=== PATIENT | male | born 1945 | race Caucasian/White ===

== ENCOUNTER 2018-12-08 11:45 | Inpatient (IN) | payer MEDICAID, OTHER ==
[2018-12-08 11:48] VITALS: BMI 22.8
--- NOTE | 2018-12-08 12:54 | ED PDOC ---
Arrival/HPI - General Chief Complaint: GI Problem Time Seen by Provider: 12/08/18 12:35 Historian: Patient - History of Present Illness Narrative History of Present Illness (Text): 12/08/18 12:35 Cresencio Verdugo is a 73 year old male, with a past medical history of Colon CA s/p partial Colon Resection, pericardial effusion s/p pericardiocentesis, and thyroid and prostate history, who presents to the emergency department complai bronwyn of bloody diarrhea since yesterday. Patient notes associated bilateral flank pain. Patient informs stool and blood are separate. Patient informs increased blood in the stool today which prompted visit to the ED. Patient denies any history of current complaints. Patient denies fever, chills, headache, dizziness, nausea, vomiting, dysuria, hematuria, or any other complaints. Time/Duration: 24 hours Symptom Onset: Sudden Symptom Course: Worsening Activities at Onset: Light Context: Home Past Medical History - Provider Review Nursing Documentation Reviewed: Yes - Infectious Disease Hx of Infectious Diseases: None - Past Medical History Past Medical History: Non-Contributing - Cardiac Other/Comment: cardiac sx to remove fluid from heart 07/23 - Musculoskeletal/Rheumatological Hx Falls: No - Gastrointestinal Other/Comment: stomach CA (sx one year ago) - Genitourinary/Gynecological Other/Comment: colon ca - Psychiatric Hx Depression: No Hx Emotional Abuse: No Hx Physical Abuse: No Hx Substance Use: No - Suicidal Assessment Feels Threatened In Home Enviroment: No Family/Social History - Physician Review Nursing Documentation Reviewed: Yes Family/Social History: Unknown Family HX Smoking Status: Former Smoker Hx Alcohol Use: No Hx Substance Use: No Hx Substance Use Treatment: No Allergies/Home Meds Allergies/Adverse Reactions: Allergies No Known Allergies Allergy (Verified 10/23/15 16:51) Home Medications: Home Meds Medication Instructions Recorded Confirmed Unobtainable 12/08/18 12/08/18 Review of Systems - Physician Review All systems were reviewed & negative as marked: Yes - Review of Systems Constitutional: absent: Fevers, Other Gastrointestinal: Abdominal Pain (bilaterally to flanks), Diarrhea, Hematochezia. absent: Nausea, Vomiting Genitourinary Male: absent: Dysuria, Hematuria Neurological: absent: Headache, Dizziness Physical Exam Vital Signs Reviewed: Yes Vital Signs Temp Pulse Resp BP Pulse Ox 12/08/18 11:59 97.9 F 88 18 103/66 97 Temperature: Afebrile Blood Pressure: Normal Pulse: Regular Respiratory Rate: Normal Appearance: Positive for: Well-Appearing, Non-Toxic, Comfortable Pain Distress: None Mental Status: Positive for: Alert and Oriented X 3 - Systems Exam Head: Present: Atraumatic, Normocephalic Pupils: Present: PERRL Extroacular Muscles: Present: EOMI Conjunctiva: Present: Normal Mouth: Present: Moist Mucous Membranes Neck: Present: Normal Range of Motion Respiratory/Chest: Present: Clear to Auscultation, Good Air Exchange. No: Respiratory Distress, Accessory Muscle Use, Wheezes, Rales, Rhonchi Cardiovascular: Present: Regular Rate and Rhythm, Normal S1, S2. No: Murmurs, Rub, Gallop Abdomen: Present: Tenderness (diffuse abdominal tenderness), Normal Bowel Sounds. No: Distention, Peritoneal Signs, Rebound, Guarding Back: Present: Normal Inspection Upper Extremity: Present: Normal Inspection. No: Cyanosis, Edema Lower Extremity: Present: Normal Inspection. No: Edema Neurological: Present: GCS=15, CN II-XII Intact, Speech Normal Skin: Present: Warm, Dry, Normal Color. No: Rashes Psychiatric: Present: Alert, Oriented x 3, Normal Insight, Normal Concentration Medical Decision Making ED Course and Treatment: 12/08/18 12:35 Impression: Cresencio Verdugo is a 73 year old male, with a past medical history of colon CA s/p partial Colon Resection, pericardial effusion s/p pericardiocentesis, thyroid and prostate history, who presents to the emergency department complaining of bloody diarrhea since yesterday. Plan: -- CT Abdomen/Pelvis -- IV Fluids -- Urinalysis -- Reassess and disposition Prior Visits: Notes and results from previous visits were reviewed. Progress Notes: Patient seen and examined. Hemoccult positive stool with no melena or hematochezia. Hgb 8.7, no need for emergent transfusion. 1L NS bolus given. Case discussed with Dr. Boland who accepts patient for admission to hospitalist service. Would like GI applications developer for consult. Consult placed to Dr. Whitten. - RAD Interpretation Narrative RAD Interpretations (Text): IMPRESSION: 1. Mild dilatation of fluid-filled proximal small bowel loops with severe segmental dilatation of a proximal jejunal loop at the site of suture line. Findings could represent nonspecific enteritis, ileus, or developing/partial SBO. Clinical followup is advised. 2. Constipation and mild gaseous distension of the colon. 3. Simple cysts in the liver and kidneys. 4. Moderate pericardial effusion. Small right and trace left pleural effusions. 5. Moderate enlargement of the prostate gland. Please correlate with PSA levels. Industrial Cafeteria Manager: Radiologist - Scribe Statement The provider has reviewed the documentation as recorded by the Zenaidaibyocasta Wooten All medical record entries made by the Zenaidaibyocasta were at my direction and personally dictated by me. I have reviewed the chart and agree that the record accurately reflects my personal performance of the history, physical exam, medical decision making, and the department course for this patient. I have also personally directed, reviewed, and agree with the discharge instructions and disposition. Disposition/Present on Arrival - Present on Arrival Any Indicators Present on Arrival: No History of DVT/PE: No History of Uncontrolled Diabetes: No Urinary Catheter: No History of Decub. Ulcer: No History Surgical Site Infection Following: None - Disposition Have Diagnosis and Disposition been Completed?: Yes Diagnosis: GI bleed Disposition: HOSPITALIZED Disposition Time: 15:53 Condition: STABLE
[2018-12-08] MEDS ORDERED: Sodium Chloride 0.9% 1,000 ML IV STA (12:59)
[2018-12-08 13:32] LABS: BASO # 0.01 K/mm3 (0.0-2.0); BASO % 0.2 % (0.0-3.0); EOS # 0.2 (0.0-0.7); EOS % 2.5 % (1.5-5.0); HEMOGLOBIN 8.7 g/dL (14.0-18.0); LYMPH # 2.2 (1.2-3.4); LYMPH % 34.3 % (22.0-35.0); MEAN CORPUSCULAR HEMOGLOBIN 25.4 pg (25.0-35.0); MEAN CORPUSCULAR HGB CONC 31.4 g/dl (31.0-37.0); MEAN PLATELET VOLUME 9.2 fl (7.0-11.0); MONO # 0.5 (0.1-0.6); MONO % 7.9 % (1.0-6.0); RBC 3.42 10^6/uL (3.5-6.1); RED CELL DISTRIBUTION WIDTH 15.5 % (11.5-14.5); WHITE BLOOD COUNT 6.3 10^3/uL (4.5-11.0)
[2018-12-08] MEDS ORDERED: Iohexol 350 MG/100 ML VIAL ONE (13:39)
[2018-12-08 13:40] LABS: ALB/GLOB RATIO 1.1 (1.1-1.8); ALBUMIN 2.8 g/dL (3.0-4.8); ALT/SGPT 17 U/L (7-56); AST/SGOT 20 U/L (17-59); BLOOD UREA NITROGEN 32 mg/dL (7-21); GFR NON-AFRICAN AMERICAN > 60
[2018-12-08 13:41] LABS: INR 1.19; PARTIAL THROMBOPLASTIN TIME 36.9 Seconds (26.9-38.3); PROTHROMBIN TIME 13.5 SECONDS (9.4-12.5)
--- NOTE | 2018-12-08 14:31 | CT ---
Date of service: 12/08/2018 PROCEDURE: CT Abdomen and Pelvis with contrast HISTORY: abd pain, hx colon ca s/p resection 3yrs ago COMPARISON: None available. TECHNIQUE: CT scan of the abdomen and pelvis was performed after administration of intravenous contrast. Oral contrast was not administered. Coronal and sagittal reformatted images were obtained. Contrast dose: 100 mL Omnipaque 350 Radiation dose: Total exam DLP = 362.23 mGy-cm. This CT exam was performed using one or more of the following dose reduction techniques: Automated exposure control, adjustment of the mA and/or kV according to patient size, and/or use of iterative reconstruction technique. FINDINGS: LOWER THORAX: There is dependent atelectasis in the lung bases. Small right and trace left pleural effusions there is mild cardiomegaly with moderate pericardial effusion. LIVER: Normal in size with homogeneous enhancement. No ductal dilatation. There is a small simple cyst in the right hepatic lobe and a 1.3 cm simple cyst in the left hepatic lobe. There are few simple cysts in both kidneys, the largest in the left interpolar region measures 5.2 x 4.3 cm. GALLBLADDER AND BILE DUCTS: Well distended. No calcified gallstones, wall thickening or pericholecystic fluid. PANCREAS: Normal in size with homogeneous enhancement. No gross lesion or ductal dilatation. SPLEEN: Normal in size and appearance. ADRENALS: No discrete nodule. KIDNEYS AND URETERS: Normal in size with homogeneous enhancement. No hydronephrosis. No solid mass. VASCULATURE: The aorta is tortuous. No aortic aneurysm. There are aortic atherosclerotic calcifications present. BOWEL: Evaluation of the bowel is limited in the absence of oral contrast. There is dilatation of fluid-filled proximal small bowel loop, with severe segmental dilatation of fluid-filled proximal jejunum at the site of suture line. The mid and distal small bowel loops are normal in caliber. There is large amount of stool in the colon. There is gaseous distension of the colon. There are postsurgical changes of partial sigmoid colon resection. APPENDIX: Normal appendix. PERITONEUM: No free fluid. No free air. LYMPH NODES: No enlarged lymph nodes. BLADDER: Partially distended and grossly normal in appearance. REPRODUCTIVE: There is moderate enlargement of the prostate gland with median lobe hypertrophy indenting on the base of the urinary bladder. BONES: No acute fracture. There is diffuse bone demineralization and multilevel degenerative changes in the spine. OTHER FINDINGS: There are bilateral small fat containing inguinal hernias. IMPRESSION: 1. Mild dilatation of fluid-filled proximal small bowel loops with severe segmental dilatation of a proximal jejunal loop at the site of suture line. Findings could represent nonspecific enteritis, ileus or developing/partial small bowel obstruction. Clinical follow-up is advised. 2. Constipation and mild gaseous distension of the colon. 3. Simple cysts in the liver and kidneys. 4. Moderate pericardial effusion. Small right and trace left pleural effusions. 4. Moderate enlargement of the prostate gland. Please correlate with PSA levels.
[2018-12-08 16:45] LABS: URINE BILIRUBIN NEGATIVE (NEGATIVE); URINE BLOOD NEGATIVE (NEGATIVE); URINE GLUCOSE (UA) NEGATIVE (NEGATIVE); URINE LEUKOCYTE ESTERASE NEGATIVE Leu/uL (NEGATIVE); URINE PROTEIN NEGATIVE mg/dL (<30 mg/dL); URINE UROBILINOGEN 0.2 E.U./dL (<1 E.U./dL)
[2018-12-08 16:46] LABS: URINE APPEARANCE CLEAR (CLEAR); URINE COLOR LIGHT YELLOW (YELLOW)
[2018-12-08] MEDS: Lactated Ringer's 1,000 ML IV SCH (17:47)
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
[2018-12-08 18:34] LABS: HDL CHOLESTEROL 27 mg/dL (29-60); IRON 23 ug/dL (45-180)
[2018-12-08 18:44] LABS: % IRON SATURATION 7 % (20-55); TOTAL IRON BINDING CAPACITY 336 ug/dL (261-462)
[2018-12-08 18:45] LABS: LDL CHOLESTEROL 45 mg/dL (0-129)
[2018-12-08 19:30] LABS: BASO # 0.01 K/mm3 (0.0-2.0); BASO % 0.2 % (0.0-3.0); EOS # 0.1 (0.0-0.7); EOS % 2.4 % (1.5-5.0); HEMOGLOBIN 8.1 g/dL (14.0-18.0); LYMPH # 2.1 (1.2-3.4); LYMPH % 35.8 % (22.0-35.0); MEAN CELL VOLUME 80.8 fl (80.0-105.0); MEAN CORPUSCULAR HEMOGLOBIN 25.5 pg (25.0-35.0); MEAN CORPUSCULAR HGB CONC 31.5 g/dl (31.0-37.0); MEAN PLATELET VOLUME 8.9 fl (7.0-11.0); MONO # 0.3 (0.1-0.6); MONO % 4.7 % (1.0-6.0); RBC 3.18 10^6/uL (3.5-6.1); RED CELL DISTRIBUTION WIDTH 15.5 % (11.5-14.5); WHITE BLOOD COUNT 5.9 10^3/uL (4.5-11.0)
[2018-12-08 21:55] LABS: FOLATE > 20.0 ng/mL
[2018-12-08] MEDS ORDERED: Pneumococcal 23-Valent Vaccine IM ONE (22:35)
[2018-12-09 01:38] LABS: BASO # 0.01 K/mm3 (0.0-2.0); BASO % 0.2 % (0.0-3.0); EOS # 0.2 (0.0-0.7); HEMOGLOBIN 7.8 g/dL (14.0-18.0); LYMPH # 2.2 (1.2-3.4); LYMPH % 43.3 % (22.0-35.0); MEAN CELL VOLUME 81.4 fl (80.0-105.0); MEAN CORPUSCULAR HGB CONC 30.7 g/dl (31.0-37.0); MEAN PLATELET VOLUME 8.4 fl (7.0-11.0); MONO # 0.3 (0.1-0.6); MONO % 5.6 % (1.0-6.0); RBC 3.12 10^6/uL (3.5-6.1); RED CELL DISTRIBUTION WIDTH 15.5 % (11.5-14.5)
[2018-12-09] MEDS: Levothyroxine 50 MCG TAB PO SCH (05:07)
[2018-12-09 06:37] LABS: BASO # 0.02 K/mm3 (0.0-2.0); BASO % 0.4 % (0.0-3.0); EOS # 0.2 (0.0-0.7); EOS % 3.1 % (1.5-5.0); HEMOGLOBIN 8.8 g/dL (14.0-18.0); LYMPH # 2.2 (1.2-3.4); LYMPH % 42.6 % (22.0-35.0); MEAN CELL VOLUME 82.1 fl (80.0-105.0); MEAN CORPUSCULAR HEMOGLOBIN 25.4 pg (25.0-35.0); MEAN CORPUSCULAR HGB CONC 30.9 g/dl (31.0-37.0); MEAN PLATELET VOLUME 9.2 fl (7.0-11.0); MONO # 0.2 (0.1-0.6); MONO % 4.5 % (1.0-6.0); RBC 3.47 10^6/uL (3.5-6.1); RED CELL DISTRIBUTION WIDTH 15.5 % (11.5-14.5); WHITE BLOOD COUNT 5.1 10^3/uL (4.5-11.0)
[2018-12-09 06:45] LABS: ALBUMIN 2.7 g/dL (3.0-4.8); ALT/SGPT 20 U/L (7-56); AST/SGOT 24 U/L (17-59); BLOOD UREA NITROGEN 28 mg/dL (7-21); GFR NON-AFRICAN AMERICAN > 60
[2018-12-09] MEDS ORDERED: Dextrose 50% SYRINGE Inj (50 ml) IVP ONE (08:30)
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
[2018-12-09 13:20] LABS: BASO # 0.02 K/mm3 (0.0-2.0); BASO % 0.4 % (0.0-3.0); EOS # 0.1 (0.0-0.7); EOS % 2.3 % (1.5-5.0); HEMOGLOBIN 9.1 g/dL (14.0-18.0); LYMPH # 1.8 (1.2-3.4); LYMPH % 35.4 % (22.0-35.0); MEAN CORPUSCULAR HEMOGLOBIN 25.9 pg (25.0-35.0); MEAN CORPUSCULAR HGB CONC 31.9 g/dl (31.0-37.0); MEAN PLATELET VOLUME 9.5 fl (7.0-11.0); MONO # 0.2 (0.1-0.6); MONO % 3.9 % (1.0-6.0); RBC 3.52 10^6/uL (3.5-6.1); RED CELL DISTRIBUTION WIDTH 15.4 % (11.5-14.5); WHITE BLOOD COUNT 5.1 10^3/uL (4.5-11.0)
--- NOTE | 2018-12-09 13:39 | CARD ---
APPROVED REPORT Date of service: 12/09/2018 EXAM: Two-dimensional and M-mode echocardiogram with Doppler and color Doppler. INDICATION Pericardial Effusion 2D DIMENSIONS Left Atrium (2D)4.2 (1.6-4.0cm)IVSd0.9 (0.7-1.1cm) LVDd4.5 (3.9-5.9cm)PWd1.2 (0.7-1.1cm) LVDs3.1 (2.5-4.0cm)FS (%) 31.7 % LVEF (%)59.9 (>50%) M-Mode DIMENSIONS Aortic Root3.70 (2.2-3.7cm)Aortic Cusp Exc.1.90 (1.5-2.0cm) Aortic Valve AoV Peak Beyzfhaj279.0cm/Anthony Peak GR.11mmHg Mitral Valve MV E Sikhbgjp86.7cm/sMV A Ggdfggkw724.0cm/sE/A ratio0.6 TDI Lateral E' Peak V7.70cm/sE/Lateral E'8.0E/Medial E'0.0 Pulmonary Valve PV Peak Swvprmdk19.8cm/sPV Peak Grad.3mmHg Tricuspid Valve TR Peak Rmvedyne842rq/sRAP [id number] Peak Gr.30mmHg [id number] LEFT VENTRICLE The left ventricle is normal size. There is normal left ventricular wall thickness. The left ventricular function is normal. The left ventricular ejection fraction is within the normal range. There is normal LV segmental wall motion. Transmitral Doppler flow pattern is Grade I-abnormal relaxation pattern. RIGHT VENTRICLE The right ventricle is normal size. There is normal right ventricular wall thickness. The right ventricular systolic function is normal. ATRIA The left atrium is borderline dilated. The right atrium is borderline dilated. AORTIC VALVE The aortic valve is normal in structure. No aortic regurgitation is present. There is no aortic valvular stenosis. MITRAL VALVE The mitral valve is normal in structure. Mitral regurgitation is trace. TRICUSPID VALVE There is mild tricuspid regurgitation. There is mild pulmonary hypertension. PULMONIC VALVE The pulmonary valve is normal in structure. There is trace pulmonic valvular regurgitation. GREAT VESSELS The aortic root is normal in size. PERICARDIAL EFFUSION There is a moderate-large loculated anterior pericardial effusion. There is no evidence of cardiac tamponade. <Conclusion> There is normal left ventricular wall thickness. The left ventricular function is normal. The left ventricular ejection fraction is within the normal range. There is normal LV segmental wall motion. Transmitral Doppler flow pattern is Grade I-abnormal relaxation pattern. There is mild tricuspid regurgitation. There is mild pulmonary hypertension. There is a moderate-large loculated anterior pericardial effusion. There is no evidence of cardiac tamponade.
[2018-12-09] MEDS: Vancomycin 25 MG/ML PO SCH ×3 (13:40→22:00)
[2018-12-09] MEDS: Lactated Ringer's 1,000 ML IV SCH (13:43)
--- NOTE | 2018-12-09 14:15 | CP.PCM.PN ---
<Beka Dalal - Last Filed: 12/09/18 15:27> Subjective - Date & Time of Evaluation Date of Evaluation: 12/09/18 Time of Evaluation: 08:00 - Subjective Subjective: Beka Dalal PGY-1 Progress Note for Hospitalist Service Patient seen and evaluated at bedside. No acute events reported overnight. Received one unit PRBC transfusion overnight. Tolerated well. Denies chest pain, palpitations, shortness of breath, leg pain, abdominal pain, dizziness, headaches, and blurry vision. Objective - Vital Signs/Intake and Output Vital Signs (last 24 hours): Temp Pulse Resp BP Pulse Ox 97.4 F L 81 20 118/66 94 L 12/09/18 06:00 12/09/18 06:00 12/09/18 06:00 12/09/18 06:00 12/09/18 06:00 Intake and Output: 12/09/18 12/09/18 06:59 18:59 Intake Total 1400 Balance 1400 - Medications Medications: Current Medications Acetaminophen (Tylenol 325mg Tab) 650 mg PO Q6H PRN PRN Reason: Fever >100.4 F Last Admin: 12/09/18 02:24 Dose: 650 mg Diphenhydramine HCl (Benadryl) 25 mg PO ONCE PRN PRN Reason: Allergy symptoms Last Admin: 12/09/18 02:24 Dose: 25 mg Hydralazine HCl (Apresoline) 10 mg IVP Q6H PRN PRN Reason: Systolic Blood Pressure Lactated Ringer's (Lactated Ringer's) 1,000 mls @ 100 mls/hr IV .Q10H [facility] Last Admin: 12/09/18 13:43 Dose: 100 mls/hr Levothyroxine Sodium (Synthroid) 50 mcg PO 0600 [facility] Last Admin: 12/09/18 05:07 Dose: 50 mcg Pantoprazole Sodium (Protonix Inj) 40 mg IVP Q12 [facility] Last Admin: 12/09/18 13:39 Dose: 40 mg Tamsulosin HCl (Flomax) 0.4 mg PO DAILY [facility] Last Admin: 12/09/18 13:39 Dose: 0.4 mg Vancomycin HCl (Vancocin 25 Mg/Ml (Oral Use)) 125 mg PO QID [facility]; Protocol Last Admin: 12/09/18 13:40 Dose: 125 mg - Labs Labs: 12/09/18 13:00 12/09/18 06:00 PT 13.5 SECONDS (9.4-12.5) H 12/08/18 13:15 INR 1.19 12/08/18 13:15 APTT 36.9 Seconds (26.9-38.3) 12/08/18 13:15 - Additional Findings Additional findings: - Constitutional Appears: Non-toxic, No Acute Distress - Head Exam Head Exam: ATRAUMATIC, NORMAL INSPECTION - Eye Exam Eye Exam: EOMI, Normal appearance - ENT Exam ENT Exam: Mucous Membranes Moist - Respiratory Exam Respiratory Exam: Rales (bilateral bases), NORMAL BREATHING PATTERN. absent: Accessory Muscle Use, Rhonchi, Wheezes, Respiratory Distress, Stridor - Cardiovascular Exam Cardiovascular Exam: REGULAR RHYTHM, +S1, +S2. absent: Tachycardia - GI/Abdominal Exam GI & Abdominal Exam: Normal Bowel Sounds, Soft. absent: Distended, Firm, Guarding, Hernia, Rebound, Rigid, Tenderness Additional comments: vertical abdominal scar; well healed - Extremities Exam Extremities exam: Positive for: normal capillary refill, normal inspection, tenderness, pedal pulses present. Negative for: calf tenderness, pedal edema - Back Exam Back exam: absent: CVA tenderness (L), CVA tenderness (R) - Neurological Exam Neurological exam: Alert - Psychiatric Exam Psychiatric exam: Normal Affect, Normal Mood - Skin Skin Exam: Dry, Normal Color, Warm Assessment and Plan - Assessment and Plan (Free Text) Assessment: 73 year old male who is a poor historian and Citizen Of [place] speaking with past medical history of colon adenocarcinoma diagnosed 4 years ago, status post partial colectomy 3 years ago at [facility], hypertension, hypothyroidism, and BPH evaluated for hematochezia and anemia. Home meds confirmed by patient. Plan: Lower GI bleed 2/2 Colon Cancer vs. Hemorrhoids vs. Diverticulosis -Abdominal and Pelvis CT 12/08: mild dilatation of fluid filled proximal small bowel loops with severe segmental dilataion of a proximal jejunal loop at the site of suture line. Mild gaseous distension of the colon. Simple cysts in the liver and kidneys. Moderate pericardial effusion. Small right and trace left pleural effusions. Moderate enlargement of the prostate gland -Currently hemodynamically stable -C/w LR at 100 cc/hr -C/w Protonix 40 mg Q12 IV -Begin CLD, advance as tolerated -Will transfuse patient if hemoglobin falls below 8 -Dr. Whitten, GI, consulted for further recommendations. CEA 0.6 Rule out Intestinal obstruction - Gen Surg on consult - Dr. Richardson- further recs appreciated - Cardiology - Dr. Carolina on consult for cardiac clearance should further surgical intervention be necessary Positive C Diff Antigen - Antigen positive, toxin negative - Begin contact precautions - Begin Vanc PO - repeat pending - ova and parasite negative - f/u stool cx Microcytic Anemia -Hgb: Improved to 8.8 s/p 1 unit PRBC. F/u repeat in afternoon -Will transfuse patient with goal hemoglobin >8 -Iron studies: Fe 23, TIBC 336, % sat 7. Vitamin B12 338, folate 20 Hypoglycemia - C/W LR - amp of D50 given - Accuchecks ACHS Pericardial effusion -Patient has history of pericardial effusion with pericardiocentesis -Will hold off on NSAIDs at this time due to possible active GI bleed -12/09/18 Echocardiogram shows 59.9% LVEF and RVSP of 40, mild TR, moderate -large locaulated anterior pericardial effusion, no evidence of tamponade Hypothyroidism -C/w home synthroid 50 mcg -Follow up with pharmacy regarding medication Hypertension -C/w home Norvasc -Currently normotensive Benign prostatic hyperplasia -C/w home tamsulosin and oxybutynin daily GI prophylaxis: protonix BID DVT prophylaxis: SCD Patient seen, case reviewed and plan approved by Dr. Boland. Beka Dalal, PGY-1 <Gabbie Boland - Last Filed: 12/09/18 16:18> Objective - Vital Signs/Intake and Output Vital Signs (last 24 hours): Temp Pulse Resp BP Pulse Ox 97.4 F L 81 20 118/66 94 L 12/09/18 06:00 12/09/18 06:00 12/09/18 06:00 12/09/18 06:00 12/09/18 06:00 Intake and Output: 12/09/18 12/09/18 06:59 18:59 Intake Total 1400 Balance 1400 - Medications Medications: Current Medications Acetaminophen (Tylenol 325mg Tab) 650 mg PO Q6H PRN PRN Reason: Fever >100.4 F Last Admin: 12/09/18 02:24 Dose: 650 mg Amlodipine Besylate (Norvasc) 10 mg PO DAILY [facility] Aspirin (Ecotrin) 81 mg PO DAILY [facility] Diphenhydramine HCl (Benadryl) 25 mg PO ONCE PRN PRN Reason: Allergy symptoms Last Admin: 12/09/18 02:24 Dose: 25 mg Lactated Ringer's (Lactated Ringer's) 1,000 mls @ 100 mls/hr IV .Q10H [facility] Last Admin: 12/09/18 13:43 Dose: 100 mls/hr Levothyroxine Sodium (Synthroid) 50 mcg PO 0600 [facility] Last Admin: 12/09/18 05:07 Dose: 50 mcg Oxybutynin Chloride (Ditropan Tab) 5 mg PO TID [facility] Pantoprazole Sodium (Protonix Inj) 40 mg IVP Q12 [facility] Last Admin: 12/09/18 13:39 Dose: 40 mg Tamsulosin HCl (Flomax) 0.4 mg PO DAILY [facility] Last Admin: 12/09/18 13:39 Dose: 0.4 mg Vancomycin HCl (Vancocin 25 Mg/Ml (Oral Use)) 125 mg PO QID [facility]; Protocol Last Admin: 12/09/18 13:40 Dose: 125 mg - Labs Labs: 12/09/18 13:00 12/09/18 06:00 PT 13.5 SECONDS (9.4-12.5) H 12/08/18 13:15 INR 1.19 12/08/18 13:15 APTT 36.9 Seconds (26.9-38.3) 12/08/18 13:15 Attending/Attestation - Attestation I have personally seen and examined this patient.: Yes I have fully participated in the care of the patient.: Yes I have reviewed all pertinent clinical information, including history, physical exam and plan: Yes Notes (Text): 12/09/18 16:09 Patient was seen and examined with senior medical writer. 73 year old male who is a poor historian and Citizen [place] speaking with past medical history of colon adenocarcinoma diagnosed 4 years ago, status post partial colectomy 3 years ago at [facility], hypertension, hypothyroidism, and BPH was admitted with lower GI bleeding 9.1 after one unit of PRBC. Stool guiac is positive, as stool was mixed with Blood, the stool studies are positive for C diff antigen but toxin is negative.We will empirically start patient on oral Vancomycin.Patient abdominal examination is benign. Case was discussed with GI. Surgery evaluation is appreciated.. Echo showed moderate Pericardial effusion.Cardiology is consulted. Management plan was discussed in detail with patient. Education was provided.
--- NOTE | 2018-12-09 14:45 | CON ---
DATE: 12/09/2018 HISTORY OF PRESENT ILLNESS: I saw Mr. Verdugo this morning. He is a 73-year-old male with past medical history of colon cancer diagnosed 4 years ago, sigmoid colectomy, high blood pressure, hypothyroidism, enlarged prostate, who presented to the emergency room with small amount of bleeding. The patient stated at the bedside that he was constipated for several days, subsequently started straining with bowel movements, subsequently bleeding started. He also reported mild diffuse abdominal pain and some mild dizziness. At the bedside this morning, the patient also indicates some mild discomfort in the right side of his back. The patient denies any nausea, vomiting, or dyspnea on exertion. At bedside this morning, the patient indicates he had dark bowel movements with small amount of blood in the stool last night. Gross rectal bleeding was not reported. His abdomen is not distended. He reports his last colonoscopy was several months ago and this was done to clarify the etiology for right lower quadrant abdominal pain. Apparently obstruction was found at the time of his colonoscopy and he was subsequently taken to [facility] for revision. He does not recall what hospital colonoscopy was performed at. I reviewed the issue of fluid around the heart that is pericardial effusion with the patient at the bedside. He indicates that he is currently seeing a body straightener at [place]. No recent evaluation echo naik of the pericardial effusion was done at that visit. PHYSICAL EXAMINATION: VITAL SIGNS: I reviewed this patient's vital signs. HEENT: Noncontributory except dry mouth. HEART: Irregular rhythm. LUNGS: Decreased breath sounds basilar on both sides apically clear. ABDOMEN: Soft. No tenderness elicits in any quadrant. LABORATORY DATA: Indicate H and H of 8.7 and 27.7 last yesterday. As of this morning, H and H roughly 7.9/25. His platelet count was 157 could be dilutional issue with that. Chemistry indicates iron 23 with TIBC 336. Urine noncontributory. I review both the CT images as well as report. The report indicates poor effusions, cardiomegaly, and he does have mild pericardial effusion. Note that there is a dilatation of fluid filled proximal small bowel loops "there is also segmental dilatation of the proximal jejunal at the site of suture line". The colon has significant amount of stool especially on the right side. There is post surgical changes of a sigmoid colon resection. ASSESSMENT: This is a 73-year-old male with history of colon cancer, status post partial colon resection admitted with complaints of small amount of rectal bleeding and straining at stool. Note that the patient "did not recall what hospital he had his colonoscopy performed at": I asked him to have his daughter to bring the colon report into the hospital. Bleeding could have resulted from excess straining resulting in a rectal mucosal tear. Note that at this point in time, the patient is pain free and bowel movements were noted to be dark with some blood streaking. Again no significant amount of blood last night according to the nursing. Note that the patient has a significant pericardial effusion and currently has not seen any body straightener. Before any endoscopic evaluation done on this patient, needs a Cardiology evaluation clearance. The patient has evidence of some kind of small bowel pathology possibly small bowel obstruction strongly suggest a surgical consult and clearance and before any endoscopy procedure performed on this patient. I reviewed both issues with the nurses on the unit this morning. Note that I will order a CEA on this patient to be done this morning. As indicated previously the patient needs several consultations and clearance before any kind of endoscopy evaluation. Anselmo put this patient on schedule for procedure on Wednesday, pending evaluation of the respective consultants. At the current time point, the patient does not appeared to be hemodynamically unstable. Rogelio Whitten DO, PhD [facility]
[2018-12-09 19:32] LABS: BASO # 0.02 K/mm3 (0.0-2.0); BASO % 0.4 % (0.0-3.0); EOS # 0.2 (0.0-0.7); EOS % 2.8 % (1.5-5.0); HEMOGLOBIN 9.3 g/dL (14.0-18.0); LYMPH # 2.4 (1.2-3.4); LYMPH % 44.3 % (22.0-35.0); MEAN CORPUSCULAR HEMOGLOBIN 25.2 pg (25.0-35.0); MEAN CORPUSCULAR HGB CONC 31.1 g/dl (31.0-37.0); MEAN PLATELET VOLUME 8.7 fl (7.0-11.0); MONO # 0.2 (0.1-0.6); MONO % 4.1 % (1.0-6.0); RBC 3.69 10^6/uL (3.5-6.1); RED CELL DISTRIBUTION WIDTH 15.2 % (11.5-14.5); WHITE BLOOD COUNT 5.4 10^3/uL (4.5-11.0)
--- NOTE | 2018-12-09 22:38 | CON ---
DATE: 12/09/2018 LOCATION: The patient is in room 365, bed 1. REASON FOR CONSULTATION: GI bleeding and history of pericardial effusion in the past. HISTORY OF PRESENT ILLNESS: The patient was admitted to [facility] with the history that he started to having bright red blood mixed with the stool initially and then it was flank blood without any stools. Some feel discomfort in the abdomen. The patient has history of colon cancer, status post partial resection at the [facility] three years ago. The patient also had history of pericardial effusion, status post pericardiocentesis done in July at [facility]. The patient was admitted to [facility] in 10/2015 and that time CAT scan of the abdomen showed moderate pericardial effusion. The patient had echo on 10/24/2015 which showed small circumferential pericardial effusion; no signs of tamponade. LV ejection fraction about 63% normal, mild concentric LVH, mild tricuspid regurgitation, and RVSP 31 mmHg. The patient at present denies ay chest pain, shortness of breath, or palpitation. He is lying flat in bed without any cardiac symptoms. PAST MEDICAL HISTORY: Significant for colon cancer, status post partial colectomy three years ago; history of pericardiocentesis, removal of about 2 liters of pericardial fluid as per the patient with pericardiocentesis in [facility] in 07/2015. The patient has history of hypertension, hypothyroidism, and benign prostatic hypertrophy. PAST SURGICAL HISTORY: The patient also had nasal surgery in the past. Pericardial in 07/2015 and history of surgery for colon cancer about five to six years ago. PERSONAL HISTORY: Denies smoking. Denies drinking. He used to smoke and drink until about 6-7 years ago and since then has completely stopped. ALLERGIES: THE PATIENT DENIES ANY ALLERGIES. FAMILY HISTORY: Not significant. HOME MEDICATIONS: Not known. The patient is a very poor historian. PHYSICAL EXAMINATION: VITAL SIGNS: Blood pressure 118/66, respiration 20, pulse 81, and temperature 97.4. HEENT: Head is normocephalic. Eyes; pupils normal. Conjunctiva is pale. NECK: JVP low. Carotid equal. THORAX: AP diameter normal. LUNGS: Clear. CARDIOVASCULAR: S1 and S2. ABDOMEN: Soft. Bowel sounds normal. EXTREMITIES: No clubbing. No cyanosis. LABORATORY DATA: WBC 5.1, hemoglobin 9.1, hematocrit 28.5, and platelets 200. Sodium 142, potassium 3.6, BUN 28, creatinine 0.7, and glucose 98. Calcium 8.0, phosphorus 2.8, magnesium 1.7, total protein 5.3, albumin 2.7, AST is 20, alkaline phosphatase 69, cholesterol 86, HDL 27, and LDL 45. EKG not done yet. We will do an EKG. Echocardiogram done today; it showed normal LV size, normal ventricular wall thickness, ejection fraction of 60%, grade I abnormal diastolic dysfunction, mild tricuspid regurgitation, mild pulmonary hypertension with RVSP of 40 mmHg, and moderate to large loculated anterior pericardial effusion. No evidence of cardiac tamponade. DIAGNOSES: Gastrointestinal bleeding, hypertension, hypothyroidism, benign prostatic hypertrophy, history of surgery for colon cancer, loculated anterior pericardial effusion, history of pericardiocentesis in 07/2015, and history of nasal surgery. PLAN: The patient has a loculated anterior pericardial effusion. No signs of tamponade. The patient's LV function is normal with ejection fraction of 60%. We will crossmatch and transfuse as needed. GI followup. Protonix 40 mg IV every 12 hours, levothyroxine 50 mcg p.o. daily, vancomycin 125 mg p.o. q.i.d., and Flomax 0.4 mg daily. IV fluid as ordered. If the patient needs any GI procedure or any surgery from cardiac point of view, the patient can go for at moderate risk, and we will continue to follow closely with you. Gabbie Alcantara MD
[2018-12-10] MEDS: Lactated Ringer's 1,000 ML IV SCH ×2 (01:51→20:52)
[2018-12-10] MEDS: Levothyroxine 50 MCG TAB PO SCH (06:34)
[2018-12-10 07:07] LABS: BASO # 0.01 K/mm3 (0.0-2.0); BASO % 0.2 % (0.0-3.0); EOS # 0.2 (0.0-0.7); EOS % 3.5 % (1.5-5.0); HEMOGLOBIN 8.7 g/dL (14.0-18.0); LYMPH # 2.2 (1.2-3.4); LYMPH % 33.7 % (22.0-35.0); MEAN CELL VOLUME 80.9 fl (80.0-105.0); MEAN CORPUSCULAR HEMOGLOBIN 25.5 pg (25.0-35.0); MEAN CORPUSCULAR HGB CONC 31.5 g/dl (31.0-37.0); MEAN PLATELET VOLUME 9.5 fl (7.0-11.0); MONO # 0.4 (0.1-0.6); MONO % 5.8 % (1.0-6.0); RBC 3.41 10^6/uL (3.5-6.1); RED CELL DISTRIBUTION WIDTH 15.4 % (11.5-14.5); WHITE BLOOD COUNT 6.6 10^3/uL (4.5-11.0)
[2018-12-10 07:37] LABS: ALBUMIN 2.7 g/dL (3.0-4.8); ALT/SGPT 18 U/L (7-56); AST/SGOT 29 U/L (17-59); BLOOD UREA NITROGEN 24 mg/dL (7-21); CALCIUM 8.2 mg/dL (8.4-10.5); GFR NON-AFRICAN AMERICAN > 60
--- NOTE | 2018-12-10 09:42 | PN ---
DATE: 12/10/2018 SUBJECTIVE: I saw Mr. Verdugo this morning. He is a 73-year-old male here with complaints of abdominal pain and rectal bleeding. At bedside this morning, the patient has some abdominal pain, appears decompressed. He indicated that his bowel movements had been black with small amounts of blood. I reviewed the issue of the patient's clinical status with the nurse on the floor, who indicated that the patient is still having some dark stool with very small amounts of blood. Note that the patient is currently on precautions for C. difficile antigen positive. PHYSICAL EXAMINATION VITAL SIGNS: I reviewed this patient's vital signs. HEENT: Noncontributory. LUNGS: Decreased breath sounds, basilar bilaterally. HEART: Regular rhythm. ABDOMEN: Soft. No tenderness elicited. LABORATORY DATA: Review of laboratory data indicates H and H of 9.3/30, platelet count of 185. No new laboratory data. Note that I ordered a CEA several days ago, value discussed yesterday with Dr. Boland, 0.6. INR within normal limits. I reviewed the consultation of Dr. Alcantara and the echo report, which indicates pulmonary hypertension, tricuspid regurgitation, moderately large anterior pericardial effusion with no evidence of tamponade. Note that Dr. Alcantara indicated colonoscopy procedure could be performed. I reviewed the note of the regional vice president surgical sales, who apparently did not address the issue of the small bowel obstruction. ASSESSMENT AND PLAN: This is a 73-year-old male with history of colon cancer resection, admitted with complaints of rectal bleeding. The patient is currently Clostridium difficile positive. He is currently still on schedule for a procedure Wednesday morning. Note that this patient is on vancomycin q.i.d. and is currently on liquid diet. Note that, my discussion with the patient indicated his last colonoscopy was roughly 9 months ago, I asked the patient to request his daughter to bring in the copy of his last colonoscopy report. Note that the patient is exhibiting signs of partial small bowel obstruction on CT scan. Review of the laboratory data at [facility] indicates that the small bowel appearance now relative to his prior evaluation is worse. This has not been addressed by the Surgical Service note. The other major issue was if the patient capable of tolerating a colon prep. Request input from surgery indicating the patient's ability to tolerate a colon prep prior to the procedure, which is scheduled for Wednesday. The patient is currently on liquid diet, and suggest not advancing beyond the full liquid diet since the patient presumably will be taking a colon prep tomorrow. Further input from Dr. Cornell will be pending. Note that CEA currently is noncontributory. Rogelio Whitten DO, PhD [facility]
[2018-12-10] MEDS ORDERED: Albuterol-Ipratrop 3 mg / 0.5 (3 ml) UD IH PRN (10:28)
--- NOTE | 2018-12-10 11:26 | CP.PCM.PN ---
Subjective - Date & Time of Evaluation Date of Evaluation: 12/10/18 Time of Evaluation: 07:15 - Subjective Subjective: Awake, No distress, lying in bed Reason for consultation and follow up:Cardiac evaluation and follow up of history of pericardial effusion,admitted for GI bleeding Seen and examined by me and Dr. Alcantara Objective - Vital Signs/Intake and Output Vital Signs (last 24 hours): Temp Pulse Resp BP Pulse Ox 98.3 F 62 17 117/66 93 L 12/10/18 08:17 12/10/18 08:17 12/10/18 08:17 12/10/18 10:58 12/10/18 08:17 Intake and Output: 12/10/18 12/10/18 06:59 18:59 Intake Total 120 Balance 120 - Medications Medications: Current Medications Acetaminophen (Tylenol 325mg Tab) 650 mg PO Q6H PRN PRN Reason: Fever >100.4 F Last Admin: 12/09/18 22:03 Dose: 650 mg Albuterol/Ipratropium (Duoneb 3 Mg/0.5 Mg (3 Ml) Ud) 3 ml IH Q2H PRN PRN Reason: Shortness of Breath Amlodipine Besylate (Norvasc) 10 mg PO DAILY [facility] Last Admin: 12/10/18 10:58 Dose: 10 mg Aspirin (Ecotrin) 81 mg PO DAILY [facility] Diphenhydramine HCl (Benadryl) 25 mg PO ONCE PRN PRN Reason: Allergy symptoms Last Admin: 12/09/18 02:24 Dose: 25 mg Lactated Ringer's (Lactated Ringer's) 1,000 mls @ 100 mls/hr IV .Q10H [facility] Last Admin: 12/10/18 01:51 Dose: Not Given Levothyroxine Sodium (Synthroid) 50 mcg PO 0600 [facility] Last Admin: 12/10/18 06:34 Dose: 50 mcg Oxybutynin Chloride (Ditropan Tab) 5 mg PO TID [facility] Last Admin: 12/10/18 10:57 Dose: 5 mg Pantoprazole Sodium (Protonix Inj) 40 mg IVP Q12 [facility] Last Admin: 12/10/18 10:58 Dose: 40 mg Tamsulosin HCl (Flomax) 0.4 mg PO DAILY [facility] Last Admin: 12/10/18 10:58 Dose: 0.4 mg Vancomycin HCl (Vancocin 25 Mg/Ml (Oral Use)) 125 mg PO QID [facility]; Protocol Last Admin: 12/09/18 22:00 Dose: 125 mg - Labs Labs: 12/10/18 05:00 12/10/18 05:00 PT 13.5 SECONDS (9.4-12.5) H 12/08/18 13:15 INR 1.19 12/08/18 13:15 APTT 36.9 Seconds (26.9-38.3) 12/08/18 13:15 - Constitutional Appears: Non-toxic, No Acute Distress - Head Exam Head Exam: NORMAL INSPECTION, NORMOCEPHALIC - Eye Exam Eye Exam: Normal appearance Pupil Exam: NORMAL ACCOMODATION - ENT Exam ENT Exam: Mucous Membranes Moist, Normal Exam - Respiratory Exam Respiratory Exam: Decreased Breath Sounds, Clear to Ausculation Bilateral, NORMAL BREATHING PATTERN - Cardiovascular Exam Cardiovascular Exam: REGULAR RHYTHM, +S1, +S2 - GI/Abdominal Exam GI & Abdominal Exam: Soft, Normal Bowel Sounds - Extremities Exam Extremities Exam: Full ROM, Normal Capillary Refill - Neurological Exam Neurological Exam: Alert, Awake, Oriented x3 - Psychiatric Exam Psychiatric exam: Normal Affect, Normal Mood - Skin Skin Exam: Dry, Normal Color, Warm Assessment and Plan - Assessment and Plan (Free Text) Assessment: A 73 year old male who came in to the ER due to bloody stools. History of colon adenocarcinoma diagnosed 4 years ago, status post partial colectomy 3 years ago at [facility], hypertension, hypothyroidism, and BPH, pericardiocenthesis 2015 (2 liters)at [facility]. Echo done yesterday and showed LVEF 60 %, grade 1 abnormal diastolic dysfunction, mild tricuspid regurgitation, mild pulmonary hypertension, RVSP 40mmHg, moderate to large loculated anterior pericardial effusion. No evidence of cardiac tamponade. Able to lie flat in bed without distress or shortness of breath. Treat medically. Post transfusion of PRBC for low H/H. GI on consult, work up in progress. Cleared for EGD/Colonoscopy with moderate risk. Cardiac status stable. Positive for C-diff, on contact isolation. Plan: No distress, feels okay On contact isolation for C-diff Continue oral antibiotics as ordered Heart rate stable Blood pressure stable On Norvasc 10 mg daily, Synthroid 50 mcg daily, Oral Vancomycin 125 mg BID, Flomax 0.4 mg daily Continue IV fliuds Will discontinue aspirin Transfuse PRBC as needed Continue current medications Continue current treatment Will follow up Plan and treatment discussed with Dr. Alcantara
[2018-12-10] MEDS: Vancomycin 25 MG/ML PO SCH ×3 (11:45→23:06)
--- NOTE | 2018-12-10 12:27 | CP.PCM.PN ---
<George Jaramillo - Last Filed: 12/10/18 12:23> Subjective - Date & Time of Evaluation Date of Evaluation: 12/10/18 Time of Evaluation: 08:00 - Subjective Subjective: George Jaramillo PG1 Medicine Progress for Dr. Boland Patient seen at bedside this morning. Patient said he had x3 bloody bowel movements since yesterday. He is passing gas. However, patient is AAOx3. He does endorse fatigue. Denies headache, lightheadedness, dizziness, cp, sob, abdominal pain, n/v/d. A full 12 point ROS was conducted and unremarkable except as stated above. Objective - Vital Signs/Intake and Output Vital Signs (last 24 hours): Temp Pulse Resp BP Pulse Ox 98.3 F 62 17 117/66 93 L 12/10/18 08:17 12/10/18 08:17 12/10/18 08:17 12/10/18 10:58 12/10/18 08:17 Intake and Output: 12/10/18 12/10/18 06:59 18:59 Intake Total 120 Balance 120 - Medications Medications: Current Medications Acetaminophen (Tylenol 325mg Tab) 650 mg PO Q6H PRN PRN Reason: Fever >100.4 F Last Admin: 12/09/18 22:03 Dose: 650 mg Albuterol/Ipratropium (Duoneb 3 Mg/0.5 Mg (3 Ml) Ud) 3 ml IH Q2H PRN PRN Reason: Shortness of Breath Amlodipine Besylate (Norvasc) 10 mg PO DAILY [facility] Last Admin: 12/10/18 10:58 Dose: 10 mg Diphenhydramine HCl (Benadryl) 25 mg PO ONCE PRN PRN Reason: Allergy symptoms Last Admin: 12/09/18 02:24 Dose: 25 mg Lactated Ringer's (Lactated Ringer's) 1,000 mls @ 100 mls/hr IV .Q10H [facility] Last Admin: 12/10/18 01:51 Dose: Not Given Levothyroxine Sodium (Synthroid) 50 mcg PO 0600 [facility] Last Admin: 12/10/18 06:34 Dose: 50 mcg Oxybutynin Chloride (Ditropan Tab) 5 mg PO TID [facility] Last Admin: 12/10/18 10:57 Dose: 5 mg Pantoprazole Sodium (Protonix Inj) 40 mg IVP Q12 [facility] Last Admin: 12/10/18 10:58 Dose: 40 mg Tamsulosin HCl (Flomax) 0.4 mg PO DAILY [facility] Last Admin: 12/10/18 10:58 Dose: 0.4 mg Vancomycin HCl (Vancocin 25 Mg/Ml (Oral Use)) 125 mg PO QID [facility]; Protocol Last Admin: 12/10/18 11:45 Dose: 125 mg - Labs Labs: 12/10/18 05:00 12/10/18 05:00 PT 13.5 SECONDS (9.4-12.5) H 12/08/18 13:15 INR 1.19 12/08/18 13:15 APTT 36.9 Seconds (26.9-38.3) 12/08/18 13:15 - Constitutional Appears: Non-toxic, No Acute Distress - Head Exam Head Exam: ATRAUMATIC, NORMAL INSPECTION - Eye Exam Eye Exam: EOMI, Normal appearance - ENT Exam ENT Exam: Mucous Membranes Moist - Respiratory Exam Respiratory Exam: Mild wheezing, NORMAL BREATHING PATTERN. absent: Accessory Muscle Use, Rhonchi, Respiratory Distress, Stridor - Cardiovascular Exam Cardiovascular Exam: REGULAR RHYTHM, +S1, +S2. absent: Tachycardia - GI/Abdominal Exam GI & Abdominal Exam: Normal Bowel Sounds, Soft. absent: Distended, Firm, Guarding, Hernia, Rebound, Rigid, Tenderness Additional comments: vertical abdominal scar; well healed - Extremities Exam Extremities exam: Positive for: normal capillary refill, normal inspection, tenderness, pedal pulses present. Negative for: calf tenderness, pedal edema - Back Exam Back exam: absent: CVA tenderness (L), CVA tenderness (R) - Neurological Exam Neurological exam: Alert - Psychiatric Exam Psychiatric exam: Normal Affect, Normal Mood - Skin Skin Exam: Dry, Normal Color, Warm Assessment and Plan - Assessment and Plan (Free Text) Assessment: 73 year old male who is a poor historian and Citizen Of [place] speaking with past medical history of colon adenocarcinoma diagnosed 4 years ago, status post partial colectomy 3 years ago at [facility], hypertension, hypothyroidism, and BPH evaluated for hematochezia and anemia. Surgery was on consult for possible intestinal obstruction, however, surgical team signed off. GI on consult and recommends colonoscopy for Wednesday. Plan: Lower GI bleed 2/2 Colon Cancer vs. Hemorrhoids vs. Diverticulosis - Patient should go for colonoscopy Wednesday as recommended by GI. Curbsided surgery that colonoscopy would be reasonable for the patient and no surgical intervention is necessary at this time. Consider colon prep tomorrow. - Hgb 8.7 today; previous 9.3 (baseline 12) - FOBT positive - Will transfuse if Hgb < 8 - continue to monitor H/H at this time - c/w liquid diet and advance diet as tolerated - Currently hemodynamically stable - c/w LR at 100 cc/hr - c/w Protonix 40 mg IV BID - Dr. Whitten, GI, on consult. Recs appreciated. - Surgery on consult (Dr. Richardson) to r/o intestinal obstruction given CT A/P findings. Recs appreciated. Surgery signed off case, no intervention. They recommend colonoscopy at this time. - Cardiology (Dr. Alcantara) on consult for clearance for colonoscopy. Low-Moderate risk, able to go for procedure. - Abdominal and Pelvis CT 12/08: mild dilatation of fluid filled proximal small bowel loops with severe segmental dilataion of a proximal jejunal loop at the site of suture line. Mild gaseous distension of the colon. Simple cysts in the liver and kidneys. Moderate pericardial effusion. Positive C Diff Antigen - Antigen positive, toxin negative; repeat pending - c/w contact precautions - c/w PO Vanc QID - ova and parasite negative - f/u stool cx Microcytic Anemia - Hgb 8.7 at this time (total x1 pRBC since hospital course) - stable - Will transfuse patient with goal hemoglobin >8 - Iron studies: Fe 23, TIBC 336, % sat 7. Vitamin B12 338, folate 20 Pericardial effusion - Patient has history of pericardial effusion with pericardiocentesis - Will hold off on NSAIDs at this time due to possible active GI bleed - 12/09/18 Echocardiogram shows 59.9% LVEF and RVSP of 40, mild TR, moderate-large locaulated anterior pericardial effusion, no evidence of tamponade Hypothyroidism - c/w home synthroid 50 mcg Hypertension - c/w home Norvasc - currently normotensive Benign prostatic hyperplasia - c/w home tamsulosin and oxybutynin daily ppx: - protonix IV BID - SCD Dispo: Continue to monitor patient on remote tele at this time. Planning for colonoscopy Wednesday. Case was discussed and reviewed with Attending Physician, Dr. Boland <Gabbie Boland - Last Filed: 12/11/18 12:53> Objective - Vital Signs/Intake and Output Vital Signs (last 24 hours): Temp Pulse Resp BP Pulse Ox 97.8 F 77 20 116/71 94 L 12/11/18 08:37 12/11/18 08:37 12/11/18 08:37 12/11/18 10:13 12/11/18 08:37 Intake and Output: 12/11/18 12/11/18 06:59 18:59 Intake Total 120 Balance 120 - Medications Medications: Current Medications Acetaminophen (Tylenol 325mg Tab) 650 mg PO Q6H PRN PRN Reason: Fever >100.4 F Last Admin: 12/09/18 22:03 Dose: 650 mg Albuterol/Ipratropium (Duoneb 3 Mg/0.5 Mg (3 Ml) Ud) 3 ml IH Q2H PRN PRN Reason: Shortness of Breath Amlodipine Besylate (Norvasc) 10 mg PO DAILY [facility] Last Admin: 12/11/18 10:13 Dose: 10 mg Diphenhydramine HCl (Benadryl) 25 mg PO ONCE PRN PRN Reason: Allergy symptoms Last Admin: 12/09/18 02:24 Dose: 25 mg Lactated Ringer's (Lactated Ringer's) 1,000 mls @ 70 mls/hr IV .[id number] [facility] Last Admin: 12/11/18 10:40 Dose: 70 mls/hr Levothyroxine Sodium (Synthroid) 50 mcg PO 0600 [facility] Last Admin: 12/11/18 06:46 Dose: 50 mcg Oxybutynin Chloride (Ditropan Tab) 5 mg PO TID [facility] Last Admin: 12/11/18 10:13 Dose: 5 mg Pantoprazole Sodium (Protonix Inj) 40 mg IVP Q12 [facility] Last Admin: 12/11/18 10:14 Dose: 40 mg Tamsulosin HCl (Flomax) 0.4 mg PO DAILY [facility] Last Admin: 12/11/18 10:13 Dose: 0.4 mg Vancomycin HCl (Vancocin 25 Mg/Ml (Oral Use)) 125 mg PO QID [facility]; Protocol Last Admin: 12/11/18 10:14 Dose: 125 mg - Labs Labs: 12/11/18 12:00 12/11/18 05:00 PT 13.5 SECONDS (9.4-12.5) H 12/08/18 13:15 INR 1.19 12/08/18 13:15 APTT 36.9 Seconds (26.9-38.3) 12/08/18 13:15 Attending/Attestation - Attestation I have personally seen and examined this patient.: Yes I have fully participated in the care of the patient.: Yes I have reviewed all pertinent clinical information, including history, physical exam and plan: Yes Notes (Text): 12/11/18 12:52 Medical record note made by the resident after discussion with my direction and input after the patient was personally seen and examined by me. I have reviewed the chart and agree that the record accurately reflects by personal performance of the history, physical exam, data review, and medical decision-making, in the course for the patient. I have also personally directed the plan of care. 73 year old male who is a poor historian and Citizen [place] speaking with past medical history of colon adenocarcinoma diagnosed 4 years ago, status post partial colectomy 3 years ago at [facility], hypertension, hypothyroidism, and BPH was admitted with lower GI bleeding .Hemoglobin 9.3 after one unit of PRBC.Stool guiac is positive, as stool was mixed with Blood, the stool studies are positive for C diff antigen but toxin is negative,started on oral Vancomycin.Patient abdominal examination is benign. Echo showed moderate Pericardial effusion. Patient is scheduled for Colonoscopy Wednesday. Surgery and Cardiology has cleared patient for Colonoscopy.
[2018-12-11] MEDS: Levothyroxine 50 MCG TAB PO SCH (06:46)
[2018-12-11] MEDS: Lactated Ringer's 1,000 ML IV SCH (06:50)
[2018-12-11 07:15] LABS: BASO # 0.01 K/mm3 (0.0-2.0); BASO % 0.2 % (0.0-3.0); EOS # 0.2 (0.0-0.7); EOS % 3.2 % (1.5-5.0); HEMOGLOBIN 9.3 g/dL (14.0-18.0); MEAN CELL VOLUME 80.1 fl (80.0-105.0); MEAN CORPUSCULAR HEMOGLOBIN 25.3 pg (25.0-35.0); MEAN CORPUSCULAR HGB CONC 31.6 g/dl (31.0-37.0); MEAN PLATELET VOLUME 9.7 fl (7.0-11.0); MONO # 0.4 (0.1-0.6); MONO % 6.7 % (1.0-6.0); RBC 3.67 10^6/uL (3.5-6.1); RED CELL DISTRIBUTION WIDTH 15.3 % (11.5-14.5); WHITE BLOOD COUNT 5.7 10^3/uL (4.5-11.0)
[2018-12-11 07:18] LABS: ALB/GLOB RATIO 1.1 (1.1-1.8); ALT/SGPT 21 U/L (7-56); AST/SGOT 42 U/L (17-59); BLOOD UREA NITROGEN 10 mg/dL (7-21); CALCIUM 8.2 mg/dL (8.4-10.5); GFR NON-AFRICAN AMERICAN > 60
--- NOTE | 2018-12-11 08:04 | PN ---
DATE: 12/11/2018 SUBJECTIVE: I saw Mr. Verdugo this morning. He is a 73-year-old male with complaints of abdominal pain and rectal bleeding. The patient has not had significant rectal bleeding over the past day and a half or so, still having some small volume liquid stool. Note that the patient has been on vancomycin therapy 125 mg four times a day for treatment of C. difficile. The patient was seen by multiple consultants including Cardiology, Surgery as well as Internal Medicine. At bedside this morning, the patient indicates no significant degree of abdominal distention or abdominal pain. Still passing small amounts of liquid stool, but no gross amount of bleeding. I reviewed this patient's laboratory data as of yesterday. PHYSICAL EXAMINATION: VITAL SIGNS: I reviewed this patient's vital signs. HEENT: Noncontributory except for dry mouth. LUNGS: Decreased breath sounds, basilar, bilaterally. HEART: Regular rate and rhythm. ABDOMEN: Soft. No tenderness elicited. LABORATORY DATA: As indicated above, labs were reviewed. Labs are pending for today. I reviewed the reports of Dr. Alcantara as well as Dr. Vinson. ASSESSMENT AND PLAN: This is a 73-year-old male with history of colon cancer, status post colonic resection apparently at [facility]. Apparently, the lesion was in the area of the distal, descending and sigmoid. The patient states he has been stable for the past couple of days and is scheduled for a colonoscopy tomorrow morning around 10:00. He will take a colon prep today. I reviewed the issue of the patient's abnormal CT with Dr. Boland on Wednesday. Also reviewed the results with Dr. Boland yesterday. Note that I am still concerned about the abnormal CT, which appeared to have gotten worsen since his last imaging at [facility]. Despite the fact that it does show some degree of small obstruction, surgical service stated that colonoscopy is still appropriate and a prep will be safe. Currently, there is no surgical intervention warranted at the current time despite the fact the imaging studies are abnormal. The patient was seen by Cardiology and cleared for the colonoscopy tomorrow. The patient has some degree of pulmonary hypertension as well as multi-valve regurgitation and is to be evaluated to the anesthesiologist tomorrow. The patient's plan for colonoscopy was discussed with him at the bedside this morning. He was advised of the risk, benefits and alternatives. He will sign a consent when he arrives at the endoscopy unit tomorrow morning. There will be a colon prep today and the diet will consists of selective clear liquids only. Rogelio Whitten DO, PhD [facility]
--- NOTE | 2018-12-11 08:13 | CP.PCM.PN ---
Subjective - Date & Time of Evaluation Date of Evaluation: 12/11/18 Time of Evaluation: 06:50 - Subjective Subjective: Awake, No distress, reading Reason for consultation and follow up:Cardiac evaluation and follow up of history of pericardial effusion,admitted for GI bleeding Seen and examined by me and Dr. Alcantara Objective - Vital Signs/Intake and Output Vital Signs (last 24 hours): Temp Pulse Resp BP Pulse Ox 97 F L 63 18 110/69 94 L 12/10/18 16:13 12/10/18 18:00 12/10/18 16:13 12/10/18 16:13 12/10/18 16:13 Intake and Output: 12/11/18 12/11/18 06:59 18:59 Intake Total 120 Balance 120 - Medications Medications: Current Medications Acetaminophen (Tylenol 325mg Tab) 650 mg PO Q6H PRN PRN Reason: Fever >100.4 F Last Admin: 12/09/18 22:03 Dose: 650 mg Albuterol/Ipratropium (Duoneb 3 Mg/0.5 Mg (3 Ml) Ud) 3 ml IH Q2H PRN PRN Reason: Shortness of Breath Amlodipine Besylate (Norvasc) 10 mg PO DAILY [facility] Last Admin: 12/10/18 10:58 Dose: 10 mg Diphenhydramine HCl (Benadryl) 25 mg PO ONCE PRN PRN Reason: Allergy symptoms Last Admin: 12/09/18 02:24 Dose: 25 mg Lactated Ringer's (Lactated Ringer's) 1,000 mls @ 100 mls/hr IV .Q10H [facility] Last Admin: 12/11/18 06:50 Dose: 100 mls/hr Levothyroxine Sodium (Synthroid) 50 mcg PO 0600 [facility] Last Admin: 12/11/18 06:46 Dose: 50 mcg Oxybutynin Chloride (Ditropan Tab) 5 mg PO TID [facility] Last Admin: 12/10/18 18:08 Dose: 5 mg Pantoprazole Sodium (Protonix Inj) 40 mg IVP Q12 [facility] Last Admin: 12/10/18 22:49 Dose: 40 mg Sodium Cl/Sod Bicarb/Potass Cl/PEG (Nulytely With Flavor Packs Estephania) 4,000 ml PO ONCE ONE Stop: 12/11/18 09:31 Tamsulosin HCl (Flomax) 0.4 mg PO DAILY [facility] Last Admin: 12/10/18 10:58 Dose: 0.4 mg Vancomycin HCl (Vancocin 25 Mg/Ml (Oral Use)) 125 mg PO QID [facility]; Protocol Last Admin: 12/10/18 23:06 Dose: 125 mg - Labs Labs: 12/11/18 05:00 12/11/18 05:00 PT 13.5 SECONDS (9.4-12.5) H 12/08/18 13:15 INR 1.19 12/08/18 13:15 APTT 36.9 Seconds (26.9-38.3) 12/08/18 13:15 - Constitutional Appears: Non-toxic, No Acute Distress - Head Exam Head Exam: NORMAL INSPECTION, NORMOCEPHALIC - Eye Exam Eye Exam: Normal appearance Pupil Exam: NORMAL ACCOMODATION - ENT Exam ENT Exam: Mucous Membranes Moist, Normal Exam - Respiratory Exam Respiratory Exam: Decreased Breath Sounds, Clear to Ausculation Bilateral, NORMAL BREATHING PATTERN - Cardiovascular Exam Cardiovascular Exam: +S1, +S2 - GI/Abdominal Exam GI & Abdominal Exam: Soft, Normal Bowel Sounds - Extremities Exam Extremities Exam: Full ROM, Normal Capillary Refill - Neurological Exam Neurological Exam: Alert, Awake, Oriented x3 - Psychiatric Exam Psychiatric exam: Normal Affect, Normal Mood - Skin Skin Exam: Dry, Normal Color, Warm Assessment and Plan - Assessment and Plan (Free Text) Assessment: A 73 year old male who came in to the ER due to bloody stools. History of colon adenocarcinoma diagnosed 4 years ago, status post partial [place] [facility], hypertension, hypothyroidism, and BPH, pericardiocenthesis 2014 (2 liters)at [facility]. Echo done yesterday and showed LVEF 60 %, grade 1 abnormal diastolic dysfunction, mild tricuspid regurgitation, mild pulmonary hypertension, RVSP 40mmHg, moderate to large loculated anterior pericardial effusion. No evidence of cardiac tamponade. Able to lie flat in bed without distress or shortness of breath. Treat medically. Post transfusion of PRBC for low H/H. GI on consult, work up in progress. Cleared for EGD/Colonoscopy with moderate risk. Cardiac status stable.Denies chest pain or shortness of breath. Positive for C-diff, on contact isolation. For colonoscopy tomorrow. Plan: For colonoscopy tomorrow Cleared for procedure with moderate risk No distress, feels better On contact isolation for C-diff Continue oral antibiotics as ordered Heart rate stable Blood pressure stable On Norvasc 10 mg daily, Synthroid 50 mcg daily, Oral Vancomycin 125 mg BID, Flomax 0.4 mg daily Continue IV fliuds Will discontinue aspirin Transfuse PRBC as needed, H/H stable Continue current medications Continue current treatment Will follow up Plan and treatment discussed with Dr. Alcantara
[2018-12-11] MEDS ORDERED: Potassium Chloride 40 mEq/30 ml LIQ UD PO ONE (09:08)
[2018-12-11] MEDS ORDERED: NuLYTELY (NACL/NAHCO3/KCL/PEG) 4L PO ONE (09:30)
[2018-12-11] MEDS: Vancomycin 25 MG/ML PO SCH ×4 (10:14→22:22)
[2018-12-11] MEDS ORDERED: Lactated Ringer's 1,000 ML IV SCH (10:32)
--- NOTE | 2018-12-11 14:26 | CP.PCM.PN ---
Subjective - Date & Time of Evaluation Date of Evaluation: 12/11/18 Time of Evaluation: 14:23 - Subjective Subjective: PGY-[address] Kya Villagran RN translated. Pt had diarrhea, dark watery, yesterday but decrease today. Mild abdominal pain, chronic. No acute complaints Objective - Vital Signs/Intake and Output Vital Signs (last 24 hours): Temp Pulse Resp BP Pulse Ox 97.8 F 77 20 116/71 94 L 12/11/18 08:37 12/11/18 08:37 12/11/18 08:37 12/11/18 10:13 12/11/18 08:37 Intake and Output: 12/11/18 12/11/18 06:59 18:59 Intake Total 120 Balance 120 - Medications Medications: Current Medications Acetaminophen (Tylenol 325mg Tab) 650 mg PO Q6H PRN PRN Reason: Fever >100.4 F Last Admin: 12/09/18 22:03 Dose: 650 mg Albuterol/Ipratropium (Duoneb 3 Mg/0.5 Mg (3 Ml) Ud) 3 ml IH Q2H PRN PRN Reason: Shortness of Breath Amlodipine Besylate (Norvasc) 10 mg PO DAILY [facility] Last Admin: 12/11/18 10:13 Dose: 10 mg Diphenhydramine HCl (Benadryl) 25 mg PO ONCE PRN PRN Reason: Allergy symptoms Last Admin: 12/09/18 02:24 Dose: 25 mg Potassium Chloride 40 meq/ (Dextrose/Sodium Chloride) 1,020 mls @ 70 mls/hr IV .[id number] [facility] Insulin Human Regular (Humulin R Low) 0 units SC ACHS [facility]; Protocol Levothyroxine Sodium (Synthroid) 50 mcg PO 0600 [facility] Last Admin: 12/11/18 06:46 Dose: 50 mcg Oxybutynin Chloride (Ditropan Tab) 5 mg PO TID [facility] Last Admin: 12/11/18 13:22 Dose: 5 mg Pantoprazole Sodium (Protonix Inj) 40 mg IVP Q12 [facility] Last Admin: 12/11/18 10:14 Dose: 40 mg Tamsulosin HCl (Flomax) 0.4 mg PO DAILY [facility] Last Admin: 12/11/18 10:13 Dose: 0.4 mg Vancomycin HCl (Vancocin 25 Mg/Ml (Oral Use)) 125 mg PO QID [facility]; Protocol Last Admin: 12/11/18 13:21 Dose: 125 mg - Labs Labs: 12/11/18 12:00 12/11/18 05:00 PT 13.5 SECONDS (9.4-12.5) H 12/08/18 13:15 INR 1.19 12/08/18 13:15 APTT 36.9 Seconds (26.9-38.3) 12/08/18 13:15 - Constitutional Appears: No Acute Distress - Head Exam Head Exam: ATRAUMATIC, NORMAL INSPECTION, NORMOCEPHALIC - Eye Exam Eye Exam: EOMI, Normal appearance, PERRL. absent: Scleral icterus Pupil Exam: NORMAL ACCOMODATION - ENT Exam ENT Exam: Mucous Membranes Moist - Neck Exam Additional comments: supple - Respiratory Exam Respiratory Exam: Clear to Ausculation Bilateral. absent: Rales, Rhonchi, Wheezes - Cardiovascular Exam Cardiovascular Exam: REGULAR RHYTHM, +S1, +S2 - GI/Abdominal Exam GI & Abdominal Exam: Soft, Tenderness (mild), Normal Bowel Sounds. absent: Guarding, Rigid Additional comments: vertical abdominal scar; well healed - Extremities Exam Extremities Exam: absent: Calf Tenderness, Pedal Edema - Back Exam Back Exam: absent: CVA tenderness (L), CVA tenderness (R) - Neurological Exam Neurological Exam: Alert, Awake, Oriented x3 - Psychiatric Exam Psychiatric exam: Normal Affect, Normal Mood - Skin Skin Exam: Dry, Warm Assessment and Plan - Assessment and Plan (Free Text) Plan: 73 year old male who is a poor historian and Amharic speaking with past medical history of colon adenocarcinoma diagnosed 4 years ago, status post partial colectomy 3 years ago at [facility] [place], hypertension, hypothyroidism, and BPH evaluated for hematochezia and anemia. Surgery had ruled out intestinal obstruction, surgical team signed off. GI will do colonoscopy for Wednesday. Lower GI bleed 2/2 Colon Cancer vs. Hemorrhoids vs. Diverticulosis - colonoscopy Wednesday, cleared by cardio and surgery. NPO MN and eulytely, CLD today - FOBT positive - Will transfuse if Hgb < 8 - continue to monitor H/H at this time - c/w Clear liquid diet - Currently hemodynamically stable - d5/halfns at 70 cc/hr - c/w Protonix 40 mg IV BID - Dr. Whitten, GI, on consult. Recs appreciated. Had ruled out bowel obstruction by surgery - Surgery signed off case, no intervention. - Abdominal and Pelvis CT 12/08: mild dilatation of fluid filled proximal small bowel loops with severe segmental dilataion of a proximal jejunal loop at the site of suture line. Mild gaseous distension of the colon. Simple cysts in the liver and kidneys. Moderate pericardial effusion. Positive C Diff Antigen - Antigen positive, toxin negative; repeat pending - c/w contact precautions - c/w PO Vanc QID - ova and parasite negative - f/u stool cx Fe deficency anemia, Microcytic, acute on chronic, baseline Hb 12 - Hgb 8.7 at this time (total x1 pRBC since hospital course) - stable - Will transfuse patient with goal hemoglobin >8 - Iron studies: Fe 23, TIBC 336, % sat 7. Vitamin B12 338, folate 20 Pericardial effusion, asymptomatic, chronic - Patient has history of pericardial effusion with pericardiocentesis - Will hold off on NSAIDs at this time due to possible active GI bleed - 12/09/18 Echocardiogram shows 59.9% LVEF and RVSP of 40, mild TR, moderate-large locaulated anterior pericardial effusion, no evidence of tamponade Hypothyroidism - c/w home synthroid 50 mcg Hypertension - c/w home Norvasc - currently normotensive Benign prostatic hyperplasia - c/w home tamsulosin and oxybutynin daily ppx: - protonix IV BID - SCD s/r/d/w Dr Boland
[2018-12-11] MEDS: Insulin Reg-LOW-Coverage SC SCH ×2 (16:32→22:20)
[2018-12-11] MEDS: Potassium Chloride 40 MEQ in Dextrose 5%/0.45% NS 1,000 ML IV SCH (18:06)
[2018-12-11 21:56] LABS: HEMOGLOBIN 9.4 g/dL (14.0-18.0)
[2018-12-12] MEDS: Levothyroxine 50 MCG TAB PO SCH (06:28)
[2018-12-12 06:39] LABS: BASO # 0.01 K/mm3 (0.0-2.0); BASO % 0.2 % (0.0-3.0); EOS # 0.3 (0.0-0.7); EOS % 6.1 % (1.5-5.0); HEMOGLOBIN 9.7 g/dL (14.0-18.0); LYMPH # 1.9 (1.2-3.4); LYMPH % 45.2 % (22.0-35.0); MEAN CELL VOLUME 81.2 fl (80.0-105.0); MEAN CORPUSCULAR HEMOGLOBIN 24.9 pg (25.0-35.0); MEAN CORPUSCULAR HGB CONC 30.7 g/dl (31.0-37.0); MEAN PLATELET VOLUME 9.6 fl (7.0-11.0); MONO # 0.3 (0.1-0.6); MONO % 6.5 % (1.0-6.0); RBC 3.89 10^6/uL (3.5-6.1); RED CELL DISTRIBUTION WIDTH 15.5 % (11.5-14.5); WHITE BLOOD COUNT 4.3 10^3/uL (4.5-11.0)
[2018-12-12 07:21] LABS: ALB/GLOB RATIO 1.1 (1.1-1.8); ALBUMIN 3.3 g/dL (3.0-4.8); ALT/SGPT 21 U/L (7-56); AST/SGOT 38 U/L (17-59); BLOOD UREA NITROGEN 4 mg/dL (7-21); CALCIUM 8.5 mg/dL (8.4-10.5); GFR NON-AFRICAN AMERICAN > 60
--- NOTE | 2018-12-12 07:36 | CP.PCM.PN ---
Subjective - Date & Time of Evaluation Date of Evaluation: 12/12/18 Time of Evaluation: 06:35 - Subjective Subjective: Lying in bed, awake, No distress Reason for consultation and follow up:Cardiac evaluation and follow up of history of pericardial effusion, admitted for GI bleeding,history of colon adenocarcinoma,status post partial colectomy,hypertension, hypothyroidism, and BPH, Seen and examined by me and Dr. Carolina Objective - Vital Signs/Intake and Output Vital Signs (last 24 hours): Temp Pulse Resp BP Pulse Ox 97.4 F L 55 L 18 118/70 95 12/11/18 15:59 12/12/18 06:00 12/11/18 15:59 12/11/18 15:59 12/11/18 15:59 Intake and Output: 12/12/18 12/12/18 06:59 18:59 Intake Total 600 Output Total 400 Balance 200 - Medications Medications: Current Medications Acetaminophen (Tylenol 325mg Tab) 650 mg PO Q6H PRN PRN Reason: Fever >100.4 F Last Admin: 12/09/18 22:03 Dose: 650 mg Albuterol/Ipratropium (Duoneb 3 Mg/0.5 Mg (3 Ml) Ud) 3 ml IH Q2H PRN PRN Reason: Shortness of Breath Amlodipine Besylate (Norvasc) 10 mg PO DAILY [facility] Last Admin: 12/11/18 10:13 Dose: 10 mg Diphenhydramine HCl (Benadryl) 25 mg PO ONCE PRN PRN Reason: Allergy symptoms Last Admin: 12/09/18 02:24 Dose: 25 mg Potassium Chloride 40 meq/ (Dextrose/Sodium Chloride) 1,020 mls @ 70 mls/hr IV .[id number] [facility] Last Admin: 12/11/18 18:06 Dose: 70 mls/hr Insulin Human Regular (Humulin R Low) 0 units SC ACHS [facility]; Protocol Last Admin: 12/11/18 22:20 Dose: Not Given Levothyroxine Sodium (Synthroid) 50 mcg PO 0600 [facility] Last Admin: 12/12/18 06:28 Dose: 50 mcg Oxybutynin Chloride (Ditropan Tab) 5 mg PO TID [facility] Last Admin: 12/11/18 18:07 Dose: 5 mg Pantoprazole Sodium (Protonix Inj) 40 mg IVP Q12 [facility] Last Admin: 12/11/18 10:14 Dose: 40 mg Tamsulosin HCl (Flomax) 0.4 mg PO DAILY [facility] Last Admin: 12/11/18 10:13 Dose: 0.4 mg Vancomycin HCl (Vancocin 25 Mg/Ml (Oral Use)) 125 mg PO QID [facility]; Protocol Last Admin: 12/11/18 22:22 Dose: 125 mg - Labs Labs: 12/12/18 06:00 12/12/18 06:00 PT 13.5 SECONDS (9.4-12.5) H 12/08/18 13:15 INR 1.19 12/08/18 13:15 APTT 36.9 Seconds (26.9-38.3) 12/08/18 13:15 - Constitutional Appears: Non-toxic, No Acute Distress - Head Exam Head Exam: NORMAL INSPECTION, NORMOCEPHALIC - Eye Exam Eye Exam: Normal appearance Pupil Exam: NORMAL ACCOMODATION - ENT Exam ENT Exam: Mucous Membranes Moist, Normal Exam - Respiratory Exam Respiratory Exam: Clear to Ausculation Bilateral, NORMAL BREATHING PATTERN - Cardiovascular Exam Cardiovascular Exam: Bradycardia, +S1, +S2 - GI/Abdominal Exam GI & Abdominal Exam: Soft, Normal Bowel Sounds - Extremities Exam Extremities Exam: Full ROM, Normal Capillary Refill - Neurological Exam Neurological Exam: Alert, Awake, Oriented x3 - Psychiatric Exam Psychiatric exam: Normal Affect, Normal Mood - Skin Skin Exam: Dry, Normal Color, Warm Assessment and Plan - Assessment and Plan (Free Text) Assessment: A 73 year old male who came in to the ER due to bloody stools. History of colon adenocarcinoma diagnosed 4 years ago, [place] [facility] [place] hypertension, hypothyroidism, and BPH, pericardiocenthesis 2014 (2 liters)at [facility]. Echo done yesterday and showed LVEF 60 %, grade 1 abnormal diastolic dysfunction, mild tricuspid regurgitation, mild pulmonary hypertension, RVSP 40mmHg, moderate to large loculated anterior pericardial effusion. No evidence of cardiac tamponade. Able to lie flat in bed without distress or shortness of breath. Treat medically. Post transfusion of PRBC for low H/H. GI on consult, work up in progress. Cleared for EGD/Colonoscopy with moderate risk. Positive for C-diff, on contact isolation. For colonoscopy today. Cardiac status stable. Denies chest pain or shortness of breath. Plan: No distress For colonoscopy today Cleared for procedure with moderate risk On contact isolation for C-diff Continue oral antibiotics as ordered Heart rate stable Blood pressure stable Aspirin held On Norvasc 10 mg daily, Synthroid 50 mcg daily, Oral Vancomycin 125 mg BID, Flomax 0.4 mg daily Continue current medications Continue current treatment Will follow up Plan and treatment discussed with Dr. Carolina
[2018-12-12] MEDS: Insulin Reg-LOW-Coverage SC SCH ×4 (09:02→22:00)
--- NOTE | 2018-12-12 09:48 | PN ---
DATE: 12/12/2018 SUBJECTIVE: I saw Mr. Verdugo this morning. He is a 73-year-old male with complaints of abdominal pain, diarrhea, rectal bleeding. The patient had no significant events overnight. Tolerated his colon prep well. Apparently, there was no bleeding during the colon prep yesterday. Note that the patient had been C. difficile positive, has been on vancomycin for seven days. PHYSICAL EXAMINATION: VITAL SIGNS, HEENT, LUNGS, HEART, ABDOMEN: Basically unchanged from yesterday. ASSESSMENT AND PLAN: This is a 73-year-old male now with complaints of abdominal pain, diarrhea, rectal bleeding; history of colon cancer, status post resection. The patient is scheduled for colonoscopy today. The patient was advised of risks, benefits, and alternatives. The patient was agreeable to the colonoscopy. He will sign the consent on arrival down in endoscopy unit this morning. Rogelio Whitten DO, PhD [facility]
[2018-12-12] MEDS ORDERED: Potassium Chloride 20 mEq ER Tab PO ONE (11:08)
--- NOTE | 2018-12-12 11:51 | CP.PCM.PN ---
<Romina Gay - Last Filed: 12/12/18 11:33> Subjective - Date & Time of Evaluation Date of Evaluation: 12/12/18 Time of Evaluation: 11:33 - Subjective Subjective: Romina Gay, PGY-1, Internal Medicine Progress Note for Dr. Heredia Patient seen and evaluated at bedside. Patient had no acute overnight events. Patient reports 9-10 episodes of diarrhea yesterday with diarrhea being clear after taking prep for colonoscopy. Patient denies any blood in stool and reports no other symptoms at this time. 12-point ROS was unremarkable except for what was mentioned above. Objective - Vital Signs/Intake and Output Vital Signs (last 24 hours): Temp Pulse Resp BP Pulse Ox 98 F 54 L 18 102/70 98 12/12/18 11:25 12/12/18 11:25 12/12/18 11:25 12/12/18 11:25 12/12/18 11:25 Intake and Output: 12/12/18 12/12/18 06:59 18:59 Intake Total 1440 Output Total 400 Balance 1040 - Medications Medications: Current Medications Acetaminophen (Tylenol 325mg Tab) 650 mg PO Q6H PRN PRN Reason: Fever >100.4 F Last Admin: 12/09/18 22:03 Dose: 650 mg Albuterol/Ipratropium (Duoneb 3 Mg/0.5 Mg (3 Ml) Ud) 3 ml IH Q2H PRN PRN Reason: Shortness of Breath Amlodipine Besylate (Norvasc) 10 mg PO DAILY [facility] Last Admin: 12/11/18 10:13 Dose: 10 mg Diphenhydramine HCl (Benadryl) 25 mg PO ONCE PRN PRN Reason: Allergy symptoms Last Admin: 12/09/18 02:24 Dose: 25 mg Potassium Chloride 40 meq/ (Dextrose/Sodium Chloride) 1,020 mls @ 70 mls/hr IV .[id number] [facility] Last Admin: 12/11/18 18:06 Dose: 70 mls/hr Insulin Human Regular (Humulin R Low) 0 units SC [facility]; Protocol Last Admin: 12/12/18 09:02 Dose: Not Given Levothyroxine Sodium (Synthroid) 50 mcg PO 0600 [facility] Last Admin: 12/12/18 06:28 Dose: 50 mcg Oxybutynin Chloride (Ditropan Tab) 5 mg PO TID [facility] Last Admin: 12/11/18 18:07 Dose: 5 mg Pantoprazole Sodium (Protonix Inj) 40 mg IVP Q12 [facility] Last Admin: 12/11/18 10:14 Dose: 40 mg Tamsulosin HCl (Flomax) 0.4 mg PO DAILY [facility] Last Admin: 12/11/18 10:13 Dose: 0.4 mg Vancomycin HCl (Vancocin 25 Mg/Ml (Oral Use)) 125 mg PO QID [facility]; Protocol Last Admin: 12/11/18 22:22 Dose: 125 mg - Labs Labs: 12/12/18 06:00 12/12/18 06:00 PT 13.5 SECONDS (9.4-12.5) H 12/08/18 13:15 INR 1.19 12/08/18 13:15 APTT 36.9 Seconds (26.9-38.3) 12/08/18 13:15 - Constitutional Appears: Well, Non-toxic, No Acute Distress - Head Exam Head Exam: ATRAUMATIC, NORMAL INSPECTION, NORMOCEPHALIC - Eye Exam Eye Exam: EOMI, PERRL - ENT Exam ENT Exam: Mucous Membranes Moist - Respiratory Exam Respiratory Exam: Clear to Auscultation Bilateral, NORMAL BREATHING PATTERN. absent: Rales, Rhonchi, Wheezes - Cardiovascular Exam Cardiovascular Exam: REGULAR RHYTHM, RRR, +S1, +S2. absent: Clicks, Gallop, Rubs - GI/Abdominal Exam GI & Abdominal Exam: Normal Bowel Sounds, Soft. absent: Distended, Firm, Guarding, tenderness - Extremities Exam Extremities exam: Positive for: full ROM, normal inspection, pedal pulses pr esent. Negative for: pedal edema - Neurological Exam Neurological exam: Alert, CN II-XII Intact, Normal Gait - Psychiatric Exam Psychiatric exam: Normal Affect, Normal Mood - Skin Skin Exam: Dry, Intact, Pallor, Warm Assessment and Plan - Assessment and Plan (Free Text) Assessment: 73 year old male who is a poor historian and Azeri speaking with past medical history of colon adenocarcinoma diagnosed 4 years ago, status post partial colectomy 3 years ago at [facility] [place], hypertension, hypothyroidism, and BPH presents with hematochezia. Plan: Lower GI bleed 2/2 Colon Cancer vs. Hemorrhoids vs. Diverticulosis -FOBT was positive -Abdominal and Pelvis CT 12/08: mild dilatation of fluid filled proximal small bowel loops with severe segmental dilataion of a proximal jejunal loop at the site of suture line. Mild gaseous distension of the colon. Simple cysts in the liver and kidneys. Moderate pericardial effusion. Small right and trace left pleural effusions. Moderate enlargement of the prostate gland -Patient scheduled for colonoscopy today. Will follow up results -Hemoglobin has been stable in the 9s and is hemodynamically stable -Continue with protonix 40 mg IV BID -Dr. Whitten, GI, on consult. Follow recommendations Ruled out small bowel obstruction -Abdominal and Pelvis CT 12/08: mild dilatation of fluid filled proximal small bowel loops with severe segmental dilataion of a proximal jejunal loop at the site of suture line. Mild gaseous distension of the colon. Simple cysts in the liver and kidneys. Moderate pericardial effusion. Small right and trace left pleural effusions. Moderate enlargement of the prostate gland -Surgery reports no further management. Patient has been having daily bowel movements. Rule out C. Difficile Infection -C. Dif stool studies: Toxin negative, antigen positive -Contact precautions -Will follow up repeat C. Dif stool study -Continue vancomycin 125 mg QID started on 12/09 Iron deficiency anemia -Hgb has been stable in the 9s -Iron: 23, TIBC: 336, %sat: 7, Vitamin B12: 338, Folate: 20 -Started ferrous sulfate 324 TID Pericardial effusion -Patient has history of pericardial effusion with pericardiocentesis -Will hold off on NSAIDs at this time due to possible active GI bleed -Echocardiogram 12/09: normal LVEF, grade I abnormal relaxation pattern, moderate large loculated anterior pericardial effusion, no cardiac tamponade Hypothyroidism -Continue synthyroid 50 mcg Hypertension -Continue norvasc 10 mg daily Benign prostatic hyperplasia -Continue tamsulosin 0.4 mg daily, oxybutynin 5 mg TID GI prophylaxis: protonix BID DVT prophylaxis: SCD Patient plan discussed with Dr. Heredia <Marsha Heredia - Last Filed: 12/12/18 12:31> Objective - Vital Signs/Intake and Output Vital Signs (last 24 hours): Temp Pulse Resp BP Pulse Ox 98 F 54 L 18 102/70 98 12/12/18 11:25 12/12/18 11:25 12/12/18 11:25 12/12/18 11:25 12/12/18 11:25 Intake and Output: 12/12/18 12/12/18 06:59 18:59 Intake Total 1440 Output Total 400 Balance 1040 - Medications Medications: Current Medications Acetaminophen (Tylenol 325mg Tab) 650 mg PO Q6H PRN PRN Reason: Fever >100.4 F Last Admin: 12/09/18 22:03 Dose: 650 mg Albuterol/Ipratropium (Duoneb 3 Mg/0.5 Mg (3 Ml) Ud) 3 ml IH Q2H PRN PRN Reason: Shortness of Breath Amlodipine Besylate (Norvasc) 10 mg PO DAILY [facility] Last Admin: 12/11/18 10:13 Dose: 10 mg Diphenhydramine HCl (Benadryl) 25 mg PO ONCE PRN PRN Reason: Allergy symptoms Last Admin: 12/09/18 02:24 Dose: 25 mg Ferrous Sulfate (Feosol) 324 mg PO TID [facility] Potassium Chloride 40 meq/ (Dextrose/Sodium Chloride) 1,020 mls @ 70 mls/hr IV .[id number] [facility] Last Admin: 12/11/18 18:06 Dose: 70 mls/hr Insulin Human Regular (Humulin R Low) 0 units SC ACHS [facility]; Protocol Last Admin: 12/12/18 09:02 Dose: Not Given Levothyroxine Sodium (Synthroid) 50 mcg PO 0600 [facility] Last Admin: 12/12/18 06:28 Dose: 50 mcg Oxybutynin Chloride (Ditropan Tab) 5 mg PO TID [facility] Last Admin: 12/11/18 18:07 Dose: 5 mg Pantoprazole Sodium (Protonix Inj) 40 mg IVP Q12 [facility] Last Admin: 12/11/18 10:14 Dose: 40 mg Tamsulosin HCl (Flomax) 0.4 mg PO DAILY [facility] Last Admin: 12/11/18 10:13 Dose: 0.4 mg Vancomycin HCl (Vancocin 25 Mg/Ml (Oral Use)) 125 mg PO QID [facility]; Protocol Last Admin: 12/11/18 22:22 Dose: 125 mg - Labs Labs: 12/12/18 06:00 12/12/18 06:00 PT 13.5 SECONDS (9.4-12.5) H 12/08/18 13:15 INR 1.19 12/08/18 13:15 APTT 36.9 Seconds (26.9-38.3) 12/08/18 13:15 Attending/Attestation - Attestation I have personally seen and examined this patient.: Yes I have fully participated in the care of the patient.: Yes I have reviewed all pertinent clinical information, including history, physical exam and plan: Yes Notes (Text): 12/12/18 12:27 73 year old male with past medical history of colon adenocarcinoma s/p partial colectomy, hypertension, and hypothyroidism who presented with LGIB. Hemoglobin improved after one unit prbc transfusion. H/H has been stable since. GI is following and plan is for colonoscopy today. Patient is also on po vancomycin for CDif (antigen positive, toxin negative). Cardiology and surgery were following the patient as well. Marsha Heredia MD Hospitalist.
[2018-12-12] MEDS ORDERED: Midazolam 2 MG/2 ML VIAL ONE (12:15)
[2018-12-12] MEDS ORDERED: Propofol 10 mg/ml Inj (20 ML) ONE (12:15)
[2018-12-12] MEDS ORDERED: Sodium Chloride 0.9% 1,000 ML IV SCH (13:00)
[2018-12-12] MEDS: Potassium Chloride 40 mEq/30 ml LIQ UD PO ONE ×2 (13:58→14:10)
[2018-12-12] MEDS: Vancomycin 25 MG/ML PO SCH ×3 (14:13→21:12)
[2018-12-12] MEDS: Potassium Chloride 40 MEQ in Dextrose 5%/0.45% NS 1,000 ML IV SCH (21:13)
[2018-12-13 02:29] VITALS: RESP 20
[2018-12-13] MEDS: Levothyroxine 50 MCG TAB PO SCH (05:22)
[2018-12-13 06:33] LABS: BASO # 0.01 K/mm3 (0.0-2.0); BASO % 0.1 % (0.0-3.0); EOS # 0.2 (0.0-0.7); EOS % 3.1 % (1.5-5.0); HEMOGLOBIN 9.9 g/dL (14.0-18.0); LYMPH % 28.7 % (22.0-35.0); MEAN CELL VOLUME 81.9 fl (80.0-105.0); MEAN CORPUSCULAR HEMOGLOBIN 24.9 pg (25.0-35.0); MEAN CORPUSCULAR HGB CONC 30.5 g/dl (31.0-37.0); MEAN PLATELET VOLUME 9.5 fl (7.0-11.0); MONO # 0.3 (0.1-0.6); MONO % 4.6 % (1.0-6.0); RBC 3.97 10^6/uL (3.5-6.1); RED CELL DISTRIBUTION WIDTH 15.5 % (11.5-14.5); WHITE BLOOD COUNT 6.8 10^3/uL (4.5-11.0)
[2018-12-13 07:10] LABS: ALB/GLOB RATIO 1.1 (1.1-1.8); ALBUMIN 3.4 g/dL (3.0-4.8); ALT/SGPT 17 U/L (7-56); AST/SGOT 32 U/L (17-59); BLOOD UREA NITROGEN 5 mg/dL (7-21); CALCIUM 8.7 mg/dL (8.4-10.5); GFR NON-AFRICAN AMERICAN > 60
--- NOTE | 2018-12-13 07:18 | CP.PCM.PN ---
Subjective - Date & Time of Evaluation Date of Evaluation: 12/13/18 Time of Evaluation: 06:55 - Subjective Subjective: Awake, No distress, sitting side of bed, reading Reason for consultation and follow up:Cardiac evaluation and follow up of history of pericardial effusion, admitted for GI bleeding,history of colon adenocarcinoma,status post partial colectomy,hypertension, hypothyroidism, and BPH, Seen and examined by me and Dr. Carolina Objective - Vital Signs/Intake and Output Vital Signs (last 24 hours): Temp Pulse Resp BP Pulse Ox 98.1 F 57 L 20 103/51 L 98 12/13/18 00:00 12/13/18 06:00 12/13/18 00:00 12/13/18 00:00 12/13/18 00:00 Intake and Output: 12/13/18 12/13/18 06:59 18:59 Intake Total 1450 Balance 1450 - Medications Medications: Current Medications Acetaminophen (Tylenol 325mg Tab) 650 mg PO Q6H PRN PRN Reason: Fever >100.4 F Last Admin: 12/09/18 22:03 Dose: 650 mg Albuterol/Ipratropium (Duoneb 3 Mg/0.5 Mg (3 Ml) Ud) 3 ml IH Q2H PRN PRN Reason: Shortness of Breath Amlodipine Besylate (Norvasc) 10 mg PO DAILY [facility] Last Admin: 12/12/18 14:10 Dose: Not Given Diphenhydramine HCl (Benadryl) 25 mg PO ONCE PRN PRN Reason: Allergy symptoms Last Admin: 12/09/18 02:24 Dose: 25 mg Ferrous Sulfate (Feosol) 324 mg PO TID [facility] Last Admin: 12/12/18 17:30 Dose: 324 mg Potassium Chloride 40 meq/ (Dextrose/Sodium Chloride) 1,020 mls @ 70 mls/hr IV .[id number] [facility] Last Admin: 12/12/18 21:13 Dose: 70 mls/hr Insulin Human Regular (Humulin R Low) 0 units SC [facility]; Protocol Last Admin: 12/12/18 22:00 Dose: Not Given Levothyroxine Sodium (Synthroid) 50 mcg PO 0600 [facility] Last Admin: 12/13/18 05:22 Dose: 50 mcg Oxybutynin Chloride (Ditropan Tab) 5 mg PO TID [facility] Last Admin: 12/12/18 17:30 Dose: 5 mg Pantoprazole Sodium (Protonix Inj) 40 mg IVP Q12 [facility] Last Admin: 12/12/18 21:14 Dose: 40 mg Tamsulosin HCl (Flomax) 0.4 mg PO DAILY [facility] Last Admin: 12/12/18 14:00 Dose: 0.4 mg Vancomycin HCl (Vancocin 25 Mg/Ml (Oral Use)) 125 mg PO QID [facility]; Protocol Last Admin: 12/12/18 21:12 Dose: 125 mg - Labs Labs: 12/13/18 06:00 12/13/18 06:00 PT 13.5 SECONDS (9.4-12.5) H 12/08/18 13:15 INR 1.19 12/08/18 13:15 APTT 36.9 Seconds (26.9-38.3) 12/08/18 13:15 - Constitutional Appears: Non-toxic, No Acute Distress - Head Exam Head Exam: NORMAL INSPECTION, NORMOCEPHALIC - Eye Exam Eye Exam: Normal appearance Pupil Exam: NORMAL ACCOMODATION - ENT Exam ENT Exam: Mucous Membranes Moist, Normal Exam - Respiratory Exam Respiratory Exam: Clear to Ausculation Bilateral, NORMAL BREATHING PATTERN - Cardiovascular Exam Cardiovascular Exam: +S1, +S2 - GI/Abdominal Exam GI & Abdominal Exam: Soft, Normal Bowel Sounds - Extremities Exam Extremities Exam: Full ROM, Normal Capillary Refill - Neurological Exam Neurological Exam: Alert, Awake, Oriented x3 - Psychiatric Exam Psychiatric exam: Normal Affect, Normal Mood - Skin Skin Exam: Dry, Normal Color, Warm Assessment and Plan - Assessment and Plan (Free Text) Assessment: A 73 year old male who came in to the ER due to bloody stools. History of colon adenocarcinoma diagnosed 4 years ago, [place] [facility] [place], hypothyroidism, and BPH, pericardiocenthesis 2015 (2 liters)at [facility]. Echo done yesterday and showed LVEF 60 %, grade 1 abnormal diastolic dysfunction, mild tricuspid regurgitation, mild pulmonary hypertension, RVSP 40mmHg, moderate to large loculated anterior pericardial effusion. No evidence of cardiac tamponade. Treat medically. Post transfusion of PRBC for low H/H. GI on consult. Positive for C-diff, on contact isolation. Cardiac status stable. Denies chest pain or shortness of breath. Post colonoscopy yesterday and showed diverticulosis and internal hemorrhoids. No active bleeding. No further cardiac work up at this time. discharge planning. Plan: No distress, feels okay Post colonoscopy yesterday On contact isolation for C-diff Continue oral antibiotics as ordered Heart rate stable Blood pressure stable On Norvasc 10 mg daily, Synthroid 50 mcg daily, Oral Vancomycin 125 mg BID, Flomax 0.4 mg daily Continue current medications Continue current treatment Discharge planning Will follow up Plan and treatment discussed with Dr. Carolina
[2018-12-13 08:14] VITALS: BP 122/72; PULSE 76; TEMP 98.5; O2SAT 94
--- NOTE | 2018-12-13 08:16 | PN ---
DATE: 12/13/2018 SUBJECTIVE: I saw Mr. Verdugo this morning. He is a 73-year-old male who has complains of abdominal pain, diarrhea, and rectal bleeding. The patient had a colonoscopy procedure yesterday to try and document the source of patient's hematochezia. Note that the patient has history of resected colon cancer which was in the area of the rectal sigmoid. The colonoscopy report is in the chart. There is no evidence of cancer noted; however, he did have one small polyp in the proximal part of the colon. There was evidence of internal hemorrhage with sigmoidal bleeding. Aside from the above, the colonoscopy was noncontributory. There were no C. difficile plaques noted. I reviewed the patient's clinical course with the patient's daughter as well as nurse last night and this morning. At this point in time, the patient's diet was advanced and a followup colonoscopy would be suggested probably about one year from today. I will sign off the case today. Rogelio Whitten DO
[2018-12-13] MEDS ORDERED: Potassium Chloride 20 mEq ER Tab PO ONE (09:23)
[2018-12-13] MEDS: Vancomycin 25 MG/ML PO SCH ×2 (11:03→15:11)
--- NOTE | 2018-12-13 15:03 | CP.PCM.DIS ---
<CleoyocastaRomina - Last Filed: 12/13/18 16:36> Provider - Provider Date of Admission: 12/08/18 15:53 Attending physician: Marsha Heredia MD Consults: 12/08/18 16:42 Gastroenterology Consult Routine Comment: Consulting Provider: Rogelio Whitten Consulting Physician: Rogelio Whitten Reason for Consult: GI bleed 12/09/18 08:18 Cardiology Consult Routine Comment: Consulting Provider: Gabbie Carolina Consulting Physician: Gabbie Carolina Reason for Consult: cardiac clearance, r/o intestinal obstruction 12/09/18 08:19 General Surgery Consult Routine Comment: Consulting Provider: Jaciel Richardson Consulting Physician: Jaciel Richardson Reason for Consult: possible intestinal obstruction Time Spent in preparation of Discharge (in minutes): 60 Hospital Course - Lab Results Lab Results: Micro Results 12/11/18 16:30 Stool C. difficile Antigen & Toxins A,B - Final 12/08/18 20:50 Stool Stool Culture - Final NO SALMONELLA, SHIGELLA OR CAMPYLOBACTER ISOLATED. 12/09/18 08:35 Stool Ova and Parasite Concentrate Exam - Final 12/08/18 20:50 Stool C. difficile Antigen & Toxins A,B - Final Most Recent Lab Values WBC 6.8 10^3/uL (4.5-11.0) D 12/13/18 06:00 RBC 3.97 10^6/uL (3.5-6.1) 12/13/18 06:00 Hgb 9.9 g/dL (14.0-18.0) L 12/13/18 06:00 Hct 32.5 % (42.0-52.0) L 12/13/18 06:00 MCV 81.9 fl (80.0-105.0) 12/13/18 06:00 MCH 24.9 pg (25.0-35.0) L 12/13/18 06:00 MCHC 30.5 g/dl (31.0-37.0) L 12/13/18 06:00 RDW 15.5 % (11.5-14.5) H 12/13/18 06:00 Plt Count 249 10^3/uL (120.0-450.0) 12/13/18 06:00 MPV 9.5 fl (7.0-11.0) 12/13/18 06:00 Neut % (Auto) 63.5 % (50.0-68.0) 12/13/18 06:00 Lymph % (Auto) 28.7 % (22.0-35.0) 12/13/18 06:00 [place] % (Auto) 4.6 % (1.0-6.0) 12/13/18 06:00 Eos % (Auto) 3.1 % (1.5-5.0) 12/13/18 06:00 Baso % (Auto) 0.1 % (0.0-3.0) 12/13/18 06:00 Lymph # (Auto) 2.0 (1.2-3.4) 12/13/18 06:00 [place] # (Auto) 0.3 (0.1-0.6) 12/13/18 06:00 Eos # (Auto) 0.2 (0.0-0.7) 12/13/18 06:00 Baso # (Auto) 0.01 K/mm3 (0.0-2.0) 12/13/18 06:00 Absolute Neuts (auto) 4.32 (1.4-6.5) 12/13/18 06:00 PT 13.5 SECONDS (9.4-12.5) H 12/08/18 13:15 INR 1.19 12/08/18 13:15 APTT 36.9 Seconds (26.9-38.3) 12/08/18 13:15 Sodium 142 mmol/L (132-148) 12/13/18 06:00 Potassium 3.6 mmol/L (3.6-5.0) 12/13/18 06:00 Chloride 105 mmol/L (98-107) 12/13/18 06:00 Carbon Dioxide 31 mmol/L (21-33) 12/13/18 06:00 Anion Gap 10 (10-20) 12/13/18 06:00 BUN 5 mg/dL (7-21) L 12/13/18 06:00 Creatinine 0.9 mg/dl (0.8-1.5) 12/13/18 06:00 Est GFR ( Amer) > 60 12/13/18 06:00 Est GFR (Non-Af Amer) > 60 12/13/18 06:00 POC Glucose (mg/dL) 97 mg/dL (65-110) 12/13/18 11:27 Random Glucose 88 mg/dL (70-110) 12/13/18 06:00 Hemoglobin A1c 6.0 % (4.2-6.5) 12/08/18 16:30 Calcium 8.7 mg/dL (8.4-10.5) 12/13/18 06:00 Phosphorus 2.8 mg/dL (2.5-4.5) 12/09/18 06:00 Magnesium 1.7 mg/dL (1.7-2.2) 12/09/18 06:00 Iron 23 ug/dL (45-180) L 12/08/18 16:30 TIBC 336 ug/dL (261-462) 12/08/18 16:30 % Saturation 7 % (20-55) L 12/08/18 16:30 Total Bilirubin 0.3 mg/dL (0.2-1.3) 12/13/18 06:00 AST 32 U/L (17-59) 12/13/18 06:00 ALT 17 U/L (7-56) 12/13/18 06:00 Alkaline Phosphatase 80 U/L (38-126) 12/13/18 06:00 Total Protein 6.6 g/dL (5.8-8.3) 12/13/18 06:00 Albumin 3.4 g/dL (3.0-4.8) 12/13/18 06:00 Globulin 3.2 gm/dL 12/13/18 06:00 Albumin/Globulin Ratio 1.1 (1.1-1.8) 12/13/18 06:00 Triglycerides 89 mg/dL (35-160) 12/08/18 16:30 Cholesterol 86 mg/dL (130-200) L 12/08/18 16:30 LDL Cholesterol Direct 45 mg/dL (0-129) 12/08/18 16:30 HDL Cholesterol 27 mg/dL (29-60) L 12/08/18 16:30 Carcinoembryonic Ag 0.6 ng/mL (0.0-3.0) 12/09/18 06:00 Vitamin B12 338 pg/mL (239-931) 12/08/18 16:30 Folate > 20.0 ng/mL 12/08/18 16:30 Urine Color Light yellow (YELLOW) 12/08/18 16:38 Urine Appearance Clear (CLEAR) 12/08/18 16:38 Urine pH 6.0 (4.7-8.0) 12/08/18 16:38 Ur Specific [place] 1.010 (1.005-1.035) 12/08/18 16:38 Urine Protein Negative mg/dL (<30 mg/dL) 12/08/18 16:38 Urine Glucose (UA) Negative mg/dL (NEGATIVE) 12/08/18 16:38 Urine Ketones Trace mg/dL (NEGATIVE) H 12/08/18 16:38 Urine Blood Negative (NEGATIVE) 12/08/18 16:38 Urine Nitrate Negative (NEGATIVE) 12/08/18 16:38 Urine Bilirubin Negative (NEGATIVE) 12/08/18 16:38 Urine Urobilinogen 0.2 E.U./dL (<1 E.U./dL) 12/08/18 16:38 Ur Leukocyte Esterase Negative Jh/uL (NEGATIVE) 12/08/18 16:38 Stool Occult Blood Positive (NEGATIVE) H 12/08/18 20:45 Blood Type O POSITIVE 12/08/18 13:15 Blood Type Confirm O POSITIVE 12/08/18 13:15 Antibody Screen Negative 12/08/18 13:15 Crossmatch See Detail 12/08/18 13:15 BBK History Checked No verified bt 12/08/18 13:15 - Hospital Course Hospital Course: Romina Gay, PGY-1, Internal Medicine Discharge Summary for Dr. Heredia 73 year old male poor historian and Bulgarian speaking with past medical history of colon adenocarcinoma, [place] [facility] [place], hypothyroidism, and BPH presented with hematochezia. He reports having fresh red blood that started the night before admission. Blood was initially mixed with normal consistency stool but he continued to have these episodes and transitioned to perfecto red blood per rectum. Stool increasingly became liquid as the night went on. He had not had any of these symptoms since he had had the [place] [facility] [place] He also reports mild diffuse abdominal pain and dizziness worse when defecating. Patient had not eaten anything since having those bowel movements. Upon admission, abdomen and pelvis CT showed mild dilatation of fluid filled proximal small bowel loops with severe segmental dilatation of a proximal je junal loop at the site of suture line. There was also mild gaseous distension of the colon. Patient was hemodynamically stable and started on LR at 100cc/hr as well as protonix 40 mg IV Q12. Patient was started on an NPO diet and had Q6 CBC with goal hemoglobin>8. Patient was given 1 U of PRBCs that night for hemoglobin less than 8. In addition, patient was found to have iron deficiency anemia and was started on ferrous sulfate on this admission. General Surgery was consulted for intestinal obstruction, and they ruled that patient did not need surgery for intestinal obstruction and that colonoscopy could proceed. Patient subsequently had colonoscopy on 12/12 which showed diverticulosis and internal hemorrhoids. Patient was counseled to not strain while defecating. Patient had positive C. Diff antigen while toxin was negative. As a result, repeat test was performed which also showed C. Diff antigen positive and toxin negative. He was started on contact precautions and vancomycin 125 mg QID on 12/09. Other stool studies were negative. Patient also had history of pericardial effusion with pericardiocentesis and once again this was seen on CT. NSAIDs were not given due to possible active GI bleed. Echocardiogram showed preserved ejection fraction As patient's home medications were now know, he was started on synthroid 50 mcg and hydralazine 10 mg Q6PRN for SBP>180. In addition, he was started on tamsulosin. The next day, medications were reconciled as pharmacy was able to be reached. He was restarted on home oxybutynin and home norvasc. Patient was found to be stable and ready for discharge. Patient was told to follow up with PCP in [facility] and title abstractor in [facility]. Patient was told to take all medications as prescribed. Patient was told to return to the emergency department if he had any new or concerning symptoms. This is a brief summary of the events that transpired at the hospital. For more information, please refer to hospital documentation. Discharge diagnoses -Hematochezia 2/2 to internal hemorrhoids -C. Diff infection -Hypothyroidism -Hypertension -BPH -Pericardial effusion -Iron deficiency anemia - Date & Time of H&P Date of H&P: 12/08/18 Time of H&P: 17:43 Discharge Exam - Head Exam Head Exam: ATRAUMATIC, NORMAL INSPECTION, NORMOCEPHALIC - Eye Exam Eye Exam: EOMI Pupil Exam: NORMAL ACCOMODATION - ENT Exam ENT Exam: Mucous Membranes Moist, Normal Exam - Respiratory Exam Respiratory Exam: Clear to PA & Lateral, NORMAL BREATHING PATTERN - Cardiovascular Exam Cardiovascular Exam: REGULAR RHYTHM, RRR, +S1, +S2. absent: Clicks, Gallop, Rubs - GI/Abdominal Exam GI & Abdominal Exam: Normal Bowel Sounds, Soft. absent: Distended, Firm, Guarding, Tenderness Additional comments: midline abdominal scar present - Extremities Exam Extremities exam: full ROM, normal capillary refill - Neurological Exam Neurological exam: Alert, CN II-XII Intact, Oriented x3 - Skin Skin Exam: Dry, Intact, Normal Color Discharge Plan - Discharge Medications Prescriptions: amLODIPine [Norvasc] 10 mg PO DAILY 14 Days #14 tab Docusate [Colace] 100 mg PO DAILY 14 Days #14 cap Ferrous Sulfate [Feosol] 324 mg PO TID 14 Days #42 ect Levothyroxine [Synthroid] 50 mcg PO 0600 14 Days #14 tab Oxybutynin [Ditropan Tab] 5 mg PO TID 14 Days #42 tab Polyethylene Glycol 3350 [Miralax] 17 gm PO DAILY 14 Days #14 packet Tamsulosin [Flomax] 0.4 mg PO DAILY 14 Days #14 cap Vancomycin [Vancocin (Oral/Rectal USE)] 125 mg PO QID 5 Days #5 vial Vancomycin HCL Oral Solution [Firvanq (Oral Solution)] 125 mg GT QID 5 Days #20 soln - Follow Up Plan Condition: STABLE Disposition: HOME/ ROUTINE Instructions: Gastrointestinal Bleeding, Acute Abdomen (Belly Pain), Acute Abdomen (Belly Pain), Adult (DC) Additional Instructions: Please follow up with your primary care doctor at [facility] within 3-5 days. Please follow up with your gastrointestinal doctor within 1 week. Please take all medications as prescribed. Please take vancomycin 125 mL four times a day for the next 5 days for C. Difficile infection. Please take miralax and colace as needed for constipation. Please do not strain while defecating as this can result in further blood per rectum. Please return to the emergency department if you have any new or concerning symptoms. Referrals: [facility] [Other] <Marsha Heredia - Last Filed: 12/13/18 16:43> Provider - Provider Date of Admission: 12/08/18 15:53 Attending physician: Marsha Heredia MD Consults: 12/08/18 16:42 Gastroenterology Consult Routine Comment: Consulting Provider: Rogelio Whitten Consulting Physician: Rogelio Whitten Reason for Consult: GI bleed 12/09/18 08:18 Cardiology Consult Routine Comment: Consulting Provider: Gabbie Carolina Consulting Physician: Gabbie Carolina Reason for Consult: cardiac clearance, r/o intestinal obstruction 12/09/18 08:19 General Surgery Consult Routine Comment: Consulting Provider: Jaciel Richardson Consulting Physician: Jaciel Richardson Reason for Consult: possible intestinal obstruction Hospital Course - Lab Results Lab Results: Micro Results 12/11/18 16:30 Stool C. difficile Antigen & Toxins A,B - Final 12/08/18 20:50 Stool Stool Culture - Final NO SALMONELLA, SHIGELLA OR CAMPYLOBACTER ISOLATED. 12/09/18 08:35 Stool Ova and Parasite Concentrate Exam - Final 12/08/18 20:50 Stool C. difficile Antigen & Toxins A,B - Final Most Recent Lab Values WBC 6.8 10^3/uL (4.5-11.0) D 12/13/18 06:00 RBC 3.97 10^6/uL (3.5-6.1) 12/13/18 06:00 Hgb 9.9 g/dL (14.0-18.0) L 12/13/18 06:00 Hct 32.5 % (42.0-52.0) L 12/13/18 06:00 MCV 81.9 fl (80.0-105.0) 12/13/18 06:00 MCH 24.9 pg (25.0-35.0) L 12/13/18 06:00 MCHC 30.5 g/dl (31.0-37.0) L 12/13/18 06:00 RDW 15.5 % (11.5-14.5) H 12/13/18 06:00 Plt Count 249 10^3/uL (120.0-450.0) 12/13/18 06:00 MPV 9.5 fl (7.0-11.0) 12/13/18 06:00 Neut % (Auto) 63.5 % (50.0-68.0) 12/13/18 06:00 Lymph % (Auto) 28.7 % (22.0-35.0) 12/13/18 06:00 [place] % (Auto) 4.6 % (1.0-6.0) 12/13/18 06:00 Eos % (Auto) 3.1 % (1.5-5.0) 12/13/18 06:00 Baso % (Auto) 0.1 % (0.0-3.0) 12/13/18 06:00 Lymph # (Auto) 2.0 (1.2-3.4) 12/13/18 06:00 [place] # (Auto) 0.3 (0.1-0.6) 12/13/18 06:00 Eos # (Auto) 0.2 (0.0-0.7) 12/13/18 06:00 Baso # (Auto) 0.01 K/mm3 (0.0-2.0) 12/13/18 06:00 Absolute Neuts (auto) 4.32 (1.4-6.5) 12/13/18 06:00 PT 13.5 SECONDS (9.4-12.5) H 12/08/18 13:15 INR 1.19 12/08/18 13:15 APTT 36.9 Seconds (26.9-38.3) 12/08/18 13:15 Sodium 142 mmol/L (132-148) 12/13/18 06:00 Potassium 3.6 mmol/L (3.6-5.0) 12/13/18 06:00 Chloride 105 mmol/L (98-107) 12/13/18 06:00 Carbon Dioxide 31 mmol/L (21-33) 12/13/18 06:00 Anion Gap 10 (10-20) 12/13/18 06:00 BUN 5 mg/dL (7-21) L 12/13/18 06:00 Creatinine 0.9 mg/dl (0.8-1.5) 12/13/18 06:00 Est GFR ( Amer) > 60 12/13/18 06:00 Est GFR (Non-Af Amer) > 60 12/13/18 06:00 POC Glucose (mg/dL) 97 mg/dL (65-110) 12/13/18 11:27 Random Glucose 88 mg/dL (70-110) 12/13/18 06:00 Hemoglobin A1c 6.0 % (4.2-6.5) 12/08/18 16:30 Calcium 8.7 mg/dL (8.4-10.5) 12/13/18 06:00 Phosphorus 2.8 mg/dL (2.5-4.5) 12/09/18 06:00 Magnesium 1.7 mg/dL (1.7-2.2) 12/09/18 06:00 Iron 23 ug/dL (45-180) L 12/08/18 16:30 TIBC 336 ug/dL (261-462) 12/08/18 16:30 % Saturation 7 % (20-55) L 12/08/18 16:30 Total Bilirubin 0.3 mg/dL (0.2-1.3) 12/13/18 06:00 AST 32 U/L (17-59) 12/13/18 06:00 ALT 17 U/L (7-56) 12/13/18 06:00 Alkaline Phosphatase 80 U/L (38-126) 12/13/18 06:00 Total Protein 6.6 g/dL (5.8-8.3) 12/13/18 06:00 Albumin 3.4 g/dL (3.0-4.8) 12/13/18 06:00 Globulin 3.2 gm/dL 12/13/18 06:00 Albumin/Globulin Ratio 1.1 (1.1-1.8) 12/13/18 06:00 Triglycerides 89 mg/dL (35-160) 12/08/18 16:30 Cholesterol 86 mg/dL (130-200) L 12/08/18 16:30 LDL Cholesterol Direct 45 mg/dL (0-129) 12/08/18 16:30 HDL Cholesterol 27 mg/dL (29-60) L 12/08/18 16:30 Carcinoembryonic Ag 0.6 ng/mL (0.0-3.0) 12/09/18 06:00 Vitamin B12 338 pg/mL (239-931) 12/08/18 16:30 Folate > 20.0 ng/mL 12/08/18 16:30 Urine Color Light yellow (YELLOW) 12/08/18 16:38 Urine Appearance Clear (CLEAR) 12/08/18 16:38 Urine pH 6.0 (4.7-8.0) 12/08/18 16:38 Ur Specific [place] 1.010 (1.005-1.035) 12/08/18 16:38 Urine Protein Negative mg/dL (<30 mg/dL) 12/08/18 16:38 Urine Glucose (UA) Negative mg/dL (NEGATIVE) 12/08/18 16:38 Urine Ketones Trace mg/dL (NEGATIVE) H 12/08/18 16:38 Urine Blood Negative (NEGATIVE) 12/08/18 16:38 Urine Nitrate Negative (NEGATIVE) 12/08/18 16:38 Urine Bilirubin Negative (NEGATIVE) 12/08/18 16:38 Urine Urobilinogen 0.2 E.U./dL (<1 E.U./dL) 12/08/18 16:38 Ur Leukocyte Esterase Negative Hj/uL (NEGATIVE) 12/08/18 16:38 Stool Occult Blood Positive (NEGATIVE) H 12/08/18 20:45 Blood Type O POSITIVE 12/08/18 13:15 Blood Type Confirm O POSITIVE 12/08/18 13:15 Antibody Screen Negative 12/08/18 13:15 Crossmatch See Detail 12/08/18 13:15 BBK History Checked No verified bt 12/08/18 13:15 Attending/Attestation - Attestation I have personally seen and examined this patient.: Yes I have fully participated in the care of the patient.: Yes I have reviewed all pertinent clinical information, including history, physical exam and plan: Yes Notes (Text): 12/13/18 16:41 73 year old male with past medical history of colon adenocarcinoma s/p partial colectomy, hypertension, and hypothyroidism who presented with LGIB. Hemoglobin improved after one unit prbc transfusion. H/H has been stable since. Patient was started on iron supplements for anemia. Patient was being followed by GI and underwent colonoscopy which showed internal hemorrhoids and diverticulosis. Patient is also on po vancomycin for CDif (antigen positive, toxin negative). Overall patient's symptoms have improved. He is discharged home to follow up with pmd. Follow up with GI. Continue with po rinao. Marsha Heredia MD Hospitalist.
== END 2018-12-13 17:03 | disposition home or self-care (01) | DRG 254 ==
LOC: ED 11:45 → ERH 15:53 → 3RNO 20:25
PROVIDERS: ADMIT Internal Medicine; ATTEND Internal Medicine
PROC: 0DJD8ZZ Inspection of Lower Intestinal Tract, Via Natural or Artificial Opening Endoscopic (ICD-10-PCS; principal; 2018-12-12 10:30)
DX: K64.8 Other hemorrhoids (principal); A04.72 Enterocolitis due to Clostridium difficile, not specified as recurrent; I31.3 Pericardial effusion (noninflammatory); I27.20 Pulmonary hypertension, unspecified; N28.1 Cyst of kidney, acquired; E03.9 Hypothyroidism, unspecified; I10 Essential (primary) hypertension; N40.0 Benign prostatic hyperplasia without lower urinary tract symptoms; D50.9 Iron deficiency anemia, unspecified; K57.90 Diverticulosis of intestine, part unspecified, without perforation or abscess without bleeding; K59.00 Constipation, unspecified; K76.89 Other specified diseases of liver; G89.29 Other chronic pain; Z78.9 Other specified health status; Z85.028 Personal history of other malignant neoplasm of stomach; Z85.038 Personal history of other malignant neoplasm of large intestine; Z87.891 Personal history of nicotine dependence; Z90.49 Acquired absence of other specified parts of digestive tract; K63.89 Other specified diseases of intestine